=== PATIENT | female | born 1945 | race Caucasian/White ===

== ENCOUNTER 2023-10-06 16:57 | Observation (INO) | payer MEDICARE ==
[2023-10-06] MEDS ORDERED: Sodium Chloride 0.9% 10 ML Syringe FLUSH PRN (17:35)
[2023-10-06] MEDS ORDERED: methylPREDNISolone Sodium Succinate 40 MG/1 ML SDV IVPUSH ONE (17:36)
[2023-10-06] MEDS ORDERED: Albuterol/Ipratropium 3.0-0.5 MG/3 ML Neb Soln NEB ONE (17:37)
[2023-10-06] MEDS ORDERED: Sodium Chloride 0.9% 250 ML IV SCH (18:00)
[2023-10-06 18:17] LABS: A/G RATIO 0.7 (0.8-2.0); ALBUMIN 3.2 g/dL (3.4-5.0); ANION GAP 14.5 mmol/L (5.0-15.0); BILIRUBIN TOTAL 0.5 mg/dL (0.0-1.0); BUN/CREATININE RATIO 20.6 (6-25); CALCIUM 8.5 mg/dL (8.5-10.1); CREATININE 1.07 mg/dL (0.55-1.02); EST CRCL DRUG DOSING (CG) 33.22 mL/min; MAGNESIUM 1.6 mg/dL (1.8-2.4); POTASSIUM,K 3.5 mmol/L (3.5-5.1); PROTEIN TOTAL,TP 7.8 g/dL (6.4-8.2)
[2023-10-06 18:18] LABS: HEMOGLOBIN 12.2 g/dL (11.5-16.5); MEAN CORPUSCULAR VOLUME 94 fL (76-96); MEAN PLATELET VOLUME 9.4 fL (6.0-10.0); PLATELET COUNT,PLT 341 K/uL (150-500); RED BLOOD CELL COUNT 3.93 M/uL (3.80-5.80); RED CELL DISTRIBUTION WIDTH 12.6 % (11.0-16.0)
[2023-10-06 18:21] LABS: WHITE BLOOD CELL COUNT,WBC 21.2 K/uL (4.0-11.0)
[2023-10-06 18:40] LABS: INFLUENZA A NAA NEGATIVE (NEGATIVE); INFLUENZA B NAA NEGATIVE (NEGATIVE); RESPIRATORY SYNCYTIAL VIR NAA NEGATIVE (NEGATIVE)
[2023-10-06] MEDS ORDERED: Magnesium Oxide 400 MG Tab PO ONE (18:43)
[2023-10-06 18:47] LABS: CORONAVIRUS COVID-19 NAA NEGATIVE (NEGATIVE)
[2023-10-06 18:54] LABS: APPEARANCE,URINE CLEAR (CLEAR); BILIRUBIN,URINE NEGATIVE (NEGATIVE); COLOR,URINE YELLOW; GLUCOSE,URINE NEGATIVE (NEGATIVE); KETONES,URINE NEGATIVE (NEGATIVE); LEUKOCYTE ESTERASE,URINE TRACE (NEGATIVE); NITRITE,URINE NEGATIVE (NEGATIVE); OCCULT BLOOD,URINE TRACE-INTACT (NEGATIVE); PROTEIN,URINE 30 mg/dL (NEGATIVE); UROBILINOGEN,URINE 0.2 E.U./dL (0.2-1.0)
[2023-10-06] MEDS ORDERED: Azithromycin 500 MG in Sodium Chloride 0.9% 250 ML IV ONE (18:55)
[2023-10-06 18:57] LABS: PLATELET COUNT ESTIMATE ADEQUATE
[2023-10-06 19:00] LABS: RBC,URINE 0-5 /HPF; RENAL EPITHELIAL CELLS,URINE RARE /HPF; SQUAMOUS EPITHELIAL CELLS,UR FEW /HPF; WBC,URINE 0-5 /HPF
[2023-10-06] MEDS ORDERED: cefTRIAXone 1 GM in Sodium Chloride 0.9% 50 ML IV SCH (19:00)
[2023-10-06] MEDS: Sodium Chloride 0.9% 1,000 ML IV SCH (19:04)
[2023-10-06] MEDS ORDERED: cefTRIAXone 1 GM Vial ONE (19:21)
[2023-10-06] MEDS ORDERED: Albuterol/Ipratropium 3.0-0.5 MG/3 ML Neb Soln NEB PRN (19:29)
[2023-10-06] MEDS ORDERED: Ondansetron 4 MG/2 ML SDV IV PRN (20:38)
[2023-10-06] MEDS ORDERED: Acetaminophen 325 MG Tab PO PRN (20:38)
[2023-10-06] MEDS: DULoxetine 20 MG Cap PO SCH (21:33)
[2023-10-07] MEDS: Sodium Chloride 0.9% 1,000 ML IV SCH (06:21)
[2023-10-07] MEDS ORDERED: Omeprazole 20 MG Cap.CR PO SCH (07:00)
[2023-10-07] MEDS ORDERED: Formoterol/Mometasone 200-5 MCG 8.8 GM Inhaler IH SCH (08:00)
[2023-10-07] MEDS ORDERED: amLODIPine 10 MG Tab PO SCH (08:00)
[2023-10-07] MEDS ORDERED: Losartan 50 MG Tab PO SCH (08:00)
[2023-10-07] MEDS ORDERED: Tiotropium Bromide 4 GM Inhalation Spray (2.5mcg/1 dose; 10 doses) INH SCH (08:00)
[2023-10-07 08:18] LABS: HEMATOCRIT 35.3 % (37.0-47.0); HEMOGLOBIN 11.4 g/dL (11.5-16.5); LYMPHOCYTES ABSOLUTE AUTO 0.37 K/uL (1.50-4.00); LYMPHOCYTES PERCENT AUTO 3.8 % (20.0-40.0); MEAN CORPUSCULAR HGB CONC 32.3 g/dL (31.0-35.0); MEAN CORPUSCULAR VOLUME 96 fL (76-96); MEAN PLATELET VOLUME 9.3 fL (6.0-10.0); MONOCYTES ABSOLUTE AUTO 0.24 K/uL (0.20-0.80); MONOCYTES PERCENT AUTO 2.5 % (3.0-10.0); NEUTROPHILS ABSOLUTE AUTO 9.07 K/uL (2.00-7.50); NEUTROPHILS PERCENT AUTO 93.7 % (45.0-70.0); PLATELET COUNT,PLT 336 K/uL (150-500); RED BLOOD CELL COUNT 3.68 M/uL (3.80-5.80); RED CELL DISTRIBUTION WIDTH 12.8 % (11.0-16.0); WHITE BLOOD CELL COUNT,WBC 9.7 K/uL (4.0-11.0)
[2023-10-07] MEDS: DULoxetine 20 MG Cap PO SCH (08:21)
[2023-10-07 09:00] LABS: A/G RATIO 0.7 (0.8-2.0); ALBUMIN 2.8 g/dL (3.4-5.0); ANION GAP 14.5 mmol/L (5.0-15.0); BILIRUBIN TOTAL 0.3 mg/dL (0.0-1.0); BUN/CREATININE RATIO 20.5 (6-25); CALCIUM 7.7 mg/dL (8.5-10.1); CARBON DIOXIDE,CO2 22.6 mmol/L (21.0-32.0); CREATININE 0.83 mg/dL (0.55-1.02); EST CRCL DRUG DOSING (CG) 42.83 mL/min; MAGNESIUM 1.9 mg/dL (1.8-2.4); POTASSIUM,K 4.1 mmol/L (3.5-5.1)
[2023-10-07] MEDS ORDERED: Azithromycin 250 MG in Sodium Chloride 0.9% 250 ML IV SCH (20:00)
== END 2023-10-07 10:10 | disposition home or self-care (01) ==
LOC: LB.ED 16:57 → LB.MS 19:11 → UNDOADMOB 19:11 → LB.MS 19:20 → LB.ED 19:55
PROVIDERS: ADMIT Nurse Practitioner Family; ATTEND Nurse Practitioner Family
DX: R06.00 Dyspnea, unspecified (principal); R00.0 Tachycardia, unspecified; D72.829 Elevated white blood cell count, unspecified; N39.0 Urinary tract infection, site not specified; J44.9 Chronic obstructive pulmonary disease, unspecified; Z20.822 Contact with and (suspected) exposure to COVID-19; Z79.899 Other long term (current) drug therapy
CPT/HCPCS: 0241U; 36415; 71045; 80053; 81001; 83605; 83735; 85025; 87040; 87086; 93005; 94640; 96361; 96365; 96375; 99222; 99238; 99285-25; A9270-GY; G0378; J0456; J0696; J2920; J3490; J7030; J7050; J7620

== ENCOUNTER 2024-06-27 08:32 | Emergency (ER) | payer MEDICARE | END 2024-06-27 09:58 | disposition home or self-care (01) | LOC: LB.ED 08:32 | DX: S70.02XA Contusion of left hip, initial encounter (principal); S20.219A Contusion of unspecified front wall of thorax, initial encounter; S39.93XA Unspecified injury of pelvis, initial encounter; I10 Essential (primary) hypertension; E78.00 Pure hypercholesterolemia, unspecified; Z79.899 Other long term (current) drug therapy; J44.9 Chronic obstructive pulmonary disease, unspecified; K21.9 Gastro-esophageal reflux disease without esophagitis; W10.9XXA Fall (on) (from) unspecified stairs and steps, initial encounter; Y93.89 Activity, other specified | CPT/HCPCS: 73030-LT; 73502-LT; 99283 ==

== ENCOUNTER 2024-07-01 08:39 | Emergency (ER) | payer MEDICARE | END 2024-07-01 09:15 | disposition home or self-care (01) | LOC: LB.ED 08:39 | DX: S32.9XXA Fracture of unspecified parts of lumbosacral spine and pelvis, initial encounter for closed fracture (principal); I10 Essential (primary) hypertension; E78.00 Pure hypercholesterolemia, unspecified; Z79.899 Other long term (current) drug therapy; W19.XXXA Unspecified fall, initial encounter | CPT/HCPCS: 99283 ==

== ENCOUNTER 2024-07-03 08:49 | Observation (INO) | payer MEDICARE ==
[2024-07-03] MEDS: Ondansetron 4 MG/2 ML SDV IVPUSH ONE (10:27)
[2024-07-03] MEDS: HYDROmorphone 2 MG/ML Syringe IVPUSH PRN ×2 (10:32→14:16)
[2024-07-03] MEDS: Sodium Chloride 0.9% 1,000 ML IV SCH (10:40)
[2024-07-03] MEDS: HYDROmorphone 2 MG/ML Syringe ONE (10:41)
[2024-07-03 11:02] LABS: BASOPHILS ABSOLUTE AUTO 0.01 K/uL (0.02-0.10); BASOPHILS PERCENT AUTO 0.1 % (0.0-0.5); EOSINOPHILS ABSOLUTE AUTO 0.02 K/uL (0.04-0.40); EOSINOPHILS PERCENT AUTO 0.2 % (1.0-5.0); HEMATOCRIT 35.3 % (37.0-47.0); HEMOGLOBIN 12.9 g/dL (11.5-16.5); LYMPHOCYTES ABSOLUTE AUTO 0.25 K/uL (1.50-4.00); LYMPHOCYTES PERCENT AUTO 2.5 % (20.0-40.0); MEAN CORPUSCULAR HEMOGLOBIN 33.8 pg (27.0-32.0); MEAN CORPUSCULAR HGB CONC 36.5 g/dL (31.0-35.0); MEAN CORPUSCULAR VOLUME 92 fL (76-96); MEAN PLATELET VOLUME 10.3 fL (6.0-10.0); MONOCYTES ABSOLUTE AUTO 0.42 K/uL (0.20-0.80); MONOCYTES PERCENT AUTO 4.2 % (3.0-10.0); NEUTROPHILS ABSOLUTE AUTO 9.38 K/uL (2.00-7.50); PLATELET COUNT,PLT 249 K/uL (150-500); RED BLOOD CELL COUNT 3.82 M/uL (3.80-5.80); RED CELL DISTRIBUTION WIDTH 13.2 % (11.0-16.0); WHITE BLOOD CELL COUNT,WBC 10.1 K/uL (4.0-11.0)
[2024-07-03 11:22] LABS: A/G RATIO 0.5 (0.8-2.0); ALBUMIN 2.1 g/dL (3.4-5.0); ANION GAP 16.9 mmol/L (5.0-15.0); BILIRUBIN TOTAL 0.5 mg/dL (0.0-1.0); BUN/CREATININE RATIO 45.6 (6-25); CALCIUM 7.6 mg/dL (8.5-10.1); CARBON DIOXIDE,CO2 20.4 mmol/L (21.0-32.0); CREATININE 1.8 mg/dL (0.55-1.02); EST CRCL DRUG DOSING (CG) 19.44 mL/min; POTASSIUM,K 4.3 mmol/L (3.5-5.1); PROTEIN TOTAL,TP 6.4 g/dL (6.4-8.2)
[2024-07-03] MEDS: Ketorolac 30 MG/ML SDV IVPUSH ONE (11:35)
[2024-07-03] MEDS: Ondansetron 4 MG/2 ML SDV ONE (11:36)
[2024-07-03 12:57] LABS: APPEARANCE,URINE SLIGHTLY CLOUDY (CLEAR); BILIRUBIN,URINE SMALL (NEGATIVE); COLOR,URINE YELLOW; GLUCOSE,URINE NEGATIVE (NEGATIVE); LEUKOCYTE ESTERASE,URINE TRACE (NEGATIVE); NITRITE,URINE NEGATIVE (NEGATIVE); OCCULT BLOOD,URINE NEGATIVE (NEGATIVE); PH,URINE 5.5 (5.0-8.0); PROTEIN,URINE 30 mg/dL (NEGATIVE); UROBILINOGEN,URINE 0.2 E.U./dL (0.2-1.0)
[2024-07-03 12:58] LABS: KETONES,URINE NEGATIVE (NEGATIVE); RBC,URINE NOT SEEN /HPF; SQUAMOUS EPITHELIAL CELLS,UR OCCASIONAL /HPF; WBC CLUMPS,URINE RARE /HPF
[2024-07-03] MEDS ORDERED: 50% Dextrose in Water 50 ML Syringe IVPUSH PRN (14:40)
[2024-07-03] MEDS ORDERED: Glucagon,Human Recombinant 1 MG Vial IM PRN (14:40)
[2024-07-03] MEDS ORDERED: Insulin Aspart 100 Units/ML 3 ML Pen SUBCUT SCH (15:00)
[2024-07-03] MEDS: LORazepam 2 MG/ML SDV IVPUSH PRN (16:37)
[2024-07-03 17:35] LABS: ANION GAP 17.5 mmol/L (5.0-15.0); BUN/CREATININE RATIO 46.1 (6-25); CREATININE 1.67 mg/dL (0.55-1.02); EST CRCL DRUG DOSING (CG) 20.95 mL/min; POTASSIUM,K 4.5 mmol/L (3.5-5.1)
[2024-07-03] MEDS ORDERED: Levofloxacin/Dextrose 5%-Water 750 MG in Levofloxacin/Dextrose 5%-Water 150 ML IV SCH (18:30)
[2024-07-03] MEDS: Levofloxacin/Dextrose 5%-Water 750 MG in Levofloxacin/Dextrose 5%-Water 150 ML IV ONE (19:11)
[2024-07-03] MEDS: cefTRIAXone 2 GM in Sodium Chloride 0.9% 100 ML IV ONE (19:13)
[2024-07-03 19:26] LABS: INFLUENZA A NAA NEGATIVE (NEGATIVE); INFLUENZA B NAA NEGATIVE (NEGATIVE); RESPIRATORY SYNCYTIAL VIR NAA NEGATIVE (NEGATIVE)
[2024-07-03 19:30] LABS: CORONAVIRUS COVID-19 NAA NEGATIVE (NEGATIVE)
[2024-07-03] MEDS: Calcium Carbonate 600 MG Tab PO SCH (23:51)
[2024-07-03] MEDS: Simvastatin 40 MG Tab *PT OWN MED PO SCH (23:51)
[2024-07-04] MEDS ORDERED: Pantoprazole 40 MG Tab.CR *PT OWN MED PO SCH (07:00)
[2024-07-04] MEDS ORDERED: LOSARTAN 100 MG PO SCH (08:00)
[2024-07-04] MEDS ORDERED: Tiotropium Bromide 4 GM Inhalation Spray (2.5mcg/1 dose; 10 doses) INH SCH (08:00)
[2024-07-04] MEDS ORDERED: Omeprazole 20 MG Cap.CR PO SCH (08:00)
== END 2024-07-03 22:56 ==
LOC: LB.ED 08:49 → LB.MS 11:45
PROVIDERS: ADMIT Surgery; ATTEND Surgery
DX: S32.519A Fracture of superior rim of unspecified pubis, initial encounter for closed fracture (principal); E86.0 Dehydration; R10.2 Pelvic and perineal pain; N17.9 Acute kidney failure, unspecified
CPT/HCPCS: 0241U; 36415; 51702; 71046; 71250; 74176; 80048; 80053; 81001; 83605; 83690; 84484; 85025; 87040; 93005; 99236; J0696; J1170; J1956; J2060; J2405; J3490; J7030

== ENCOUNTER 2024-07-14 11:48 | Emergency (ER) | payer MEDICARE ==
[2024-07-14] MEDS: Acetaminophen/oxyCODONE 325-5 MG Tab PO ONE (13:48)
[2024-07-14 14:23] LABS: APPEARANCE,URINE CLEAR (CLEAR); BILIRUBIN,URINE NEGATIVE (NEGATIVE); COLOR,URINE YELLOW; GLUCOSE,URINE NEGATIVE (NEGATIVE); KETONES,URINE NEGATIVE (NEGATIVE); PROTEIN,URINE NEGATIVE (NEGATIVE)
[2024-07-14 14:24] LABS: LEUKOCYTE ESTERASE,URINE NEGATIVE (NEGATIVE); NITRITE,URINE NEGATIVE (NEGATIVE); OCCULT BLOOD,URINE NEGATIVE (NEGATIVE); UROBILINOGEN,URINE 0.2 E.U./dL (0.2-1.0)
[2024-07-14 15:08] LABS: A/G RATIO 0.4 (0.8-2.0); ALBUMIN 1.8 g/dL (3.4-5.0); ANION GAP 11.7 mmol/L (5.0-15.0); BILIRUBIN TOTAL 0.6 mg/dL (0.0-1.0); BUN/CREATININE RATIO 16.9 (6-25); CARBON DIOXIDE,CO2 25.6 mmol/L (21.0-32.0); CREATININE 0.83 mg/dL (0.55-1.02); EST CRCL DRUG DOSING (CG) 42.15 mL/min; POTASSIUM,K 3.3 mmol/L (3.5-5.1); PROTEIN TOTAL,TP 5.9 g/dL (6.4-8.2)
[2024-07-14 15:17] LABS: MEAN CORPUSCULAR HEMOGLOBIN 31.1 pg (27.0-32.0); MEAN CORPUSCULAR HGB CONC 33.2 g/dL (31.0-35.0); MEAN CORPUSCULAR VOLUME 94 fL (76-96); RED BLOOD CELL COUNT 2.67 M/uL (3.80-5.80); RED CELL DISTRIBUTION WIDTH 14.6 % (11.0-16.0); WHITE BLOOD CELL COUNT,WBC 16.9 K/uL (4.0-11.0)
[2024-07-14 15:18] LABS: INFLUENZA A NAA NEGATIVE (NEGATIVE); INFLUENZA B NAA NEGATIVE (NEGATIVE); RESPIRATORY SYNCYTIAL VIR NAA NEGATIVE (NEGATIVE)
[2024-07-14 15:19] LABS: CORONAVIRUS COVID-19 NAA NEGATIVE (NEGATIVE)
[2024-07-14 15:24] LABS: PLATELET COUNT,PLT 730 K/uL (150-500)
[2024-07-14 15:27] LABS: ANISOCYTOSIS RARE; HYPOCHROMASIA MANY; PLATELET COUNT ESTIMATE MARKED INC; POIKILOCYTOSIS RARE; STOMATOCYTES RARE
[2024-07-14 15:30] LABS: HEMOGLOBIN 8.3 g/dL (11.5-16.5)
[2024-07-14] MEDS ORDERED: oxyCODONE 5 MG Tab PO PRN (15:36)
[2024-07-14] MEDS ORDERED: Calcium Carbonate 600 MG Tab PO SCH (20:00)
[2024-07-14] MEDS ORDERED: DULoxetine 20 MG Cap PO SCH (20:00)
[2024-07-15] MEDS ORDERED: Pantoprazole 40 MG Tab.CR PO SCH (07:00)
[2024-07-15] MEDS ORDERED: amLODIPine 10 MG Tab PO SCH (08:00)
[2024-07-15] MEDS ORDERED: Non-Formulary Medication 1 Each (Magnesium [Magnesium] 250 MG Tablet) PO SCH (08:00)
[2024-07-15] MEDS ORDERED: FERROUS SULFATE DRIED 159 MG PO SCH ×2 (08:00)
[2024-07-15] MEDS ORDERED: Tiotropium Bromide 4 GM Inhalation Spray (2.5mcg/1 dose; 10 doses) INH SCH (08:00)
[2024-07-15] MEDS ORDERED: Diltiazem 120 MG Cap.CD PO SCH (08:00)
[2024-07-15] MEDS ORDERED: Magnesium Oxide 400 MG Tab PO SCH (08:00)
[2024-07-15] MEDS ORDERED: Ferrous Gluconate 324 MG Tab PO SCH (08:00)
[2024-07-15 08:36] LABS: BASOPHILS ABSOLUTE AUTO 0.02 K/uL (0.02-0.10); BASOPHILS PERCENT AUTO 0.2 % (0.0-0.5); EOSINOPHILS ABSOLUTE AUTO 0.09 K/uL (0.04-0.40); EOSINOPHILS PERCENT AUTO 0.8 % (1.0-5.0); HEMATOCRIT 26.7 % (37.0-47.0); HEMOGLOBIN 8.8 g/dL (11.5-16.5); LYMPHOCYTES ABSOLUTE AUTO 0.68 K/uL (1.50-4.00); LYMPHOCYTES PERCENT AUTO 5.8 % (20.0-40.0); MEAN CORPUSCULAR HEMOGLOBIN 31.1 pg (27.0-32.0); MEAN CORPUSCULAR VOLUME 94 fL (76-96); MEAN PLATELET VOLUME 9.7 fL (6.0-10.0); MONOCYTES ABSOLUTE AUTO 0.66 K/uL (0.20-0.80); MONOCYTES PERCENT AUTO 5.7 % (3.0-10.0); NEUTROPHILS ABSOLUTE AUTO 10.18 K/uL (2.00-7.50); NEUTROPHILS PERCENT AUTO 87.5 % (45.0-70.0); RED BLOOD CELL COUNT 2.83 M/uL (3.80-5.80); RED CELL DISTRIBUTION WIDTH 14.8 % (11.0-16.0); WHITE BLOOD CELL COUNT,WBC 11.6 K/uL (4.0-11.0)
[2024-07-15 08:38] LABS: PLATELET COUNT,PLT 751 K/uL (150-500)
[2024-07-15 08:48] LABS: ANION GAP 12.7 mmol/L (5.0-15.0); CARBON DIOXIDE,CO2 25.6 mmol/L (21.0-32.0); CREATININE 0.92 mg/dL (0.55-1.02); EST CRCL DRUG DOSING (CG) 38.03 mL/min; POTASSIUM,K 3.3 mmol/L (3.5-5.1)
== END 2024-07-14 15:00 | disposition swing bed (61) ==
LOC: LB.ED 11:48
DX: J43.9 Emphysema, unspecified (principal); M71.022 Abscess of bursa, left elbow; S32.810S Multiple fractures of pelvis with stable disruption of pelvic ring, sequela; S22.42XS Multiple fractures of ribs, left side, sequela; I10 Essential (primary) hypertension; K21.9 Gastro-esophageal reflux disease without esophagitis; J44.9 Chronic obstructive pulmonary disease, unspecified; Z87.891 Personal history of nicotine dependence; Z79.899 Other long term (current) drug therapy; W01.0XXS Fall on same level from slipping, tripping and stumbling without subsequent striking against object, sequela
CPT/HCPCS: 0241U; 36415; 71045; 80053; 81003; 85025; 87040; 99285; A9270

== ENCOUNTER 2024-07-14 15:20 | Inpatient (IN) | payer MEDICARE ==
[2024-07-14] MEDS: Acetaminophen 500 MG Tab PO SCH (16:32)
[2024-07-14] MEDS: Tuberculin, PPD 5 Units/0.1 ML 1 ML MDV IDERM ONE (19:10)
[2024-07-14] MEDS: Calcium Carbonate 600 MG Tab PO SCH (19:17)
[2024-07-14] MEDS: DULoxetine 20 MG Cap PO SCH (19:17)
[2024-07-15] MEDS: Magnesium Oxide 400 MG Tab PO SCH (07:51)
[2024-07-15] MEDS: Ferrous Gluconate 324 MG Tab PO SCH (07:52)
[2024-07-15] MEDS: Pantoprazole 40 MG Tab.CR PO SCH (07:52)
[2024-07-15] MEDS: Diltiazem 120 MG Cap.CD PO SCH (07:52)
[2024-07-15] MEDS: Tiotropium Bromide 4 GM Inhalation Spray (2.5mcg/1 dose; 10 doses) INH SCH (07:53)
[2024-07-15] MEDS: amLODIPine 10 MG Tab PO SCH (07:53)
[2024-07-15] MEDS ORDERED: FERROUS SULFATE DRIED 159 MG PO SCH (08:00)
[2024-07-15] MEDS: oxyCODONE 5 MG Tab PO PRN (09:40)
[2024-07-15] MEDS ORDERED: Zinc Oxide 20% Oint 56.7 GM Tube TOP PRN (09:52)
[2024-07-15 10:30] LABS: APPEARANCE,URINE CLOUDY (CLEAR); BILIRUBIN,URINE NEGATIVE (NEGATIVE); COLOR,URINE YELLOW; GLUCOSE,URINE NEGATIVE (NEGATIVE); KETONES,URINE NEGATIVE (NEGATIVE); LEUKOCYTE ESTERASE,URINE TRACE (NEGATIVE); NITRITE,URINE NEGATIVE (NEGATIVE); OCCULT BLOOD,URINE TRACE-INTACT (NEGATIVE); PH,URINE 7.5 (5.0-8.0); PROTEIN,URINE NEGATIVE (NEGATIVE); UROBILINOGEN,URINE 0.2 E.U./dL (0.2-1.0)
[2024-07-15 10:31] LABS: RBC,URINE 0-5 /HPF; SQUAMOUS EPITHELIAL CELLS,UR OCCASIONAL /HPF; WBC,URINE 0-5 /HPF
[2024-07-15] MEDS: FLU (Fluad Triv) TS24-25 (65UP)/MF59C/PF 45 MCG/0.5 ML Syringe IM ONE (13:59)
[2024-07-16] MEDS: fentaNYL 12 MCG/HR Transdermal Patch TRDERM SCH (11:57)
[2024-07-16] MEDS: ALPRAZolam 0.25 MG Tab PO PRN (11:59)
[2024-07-16] MEDS: fentaNYL 100 MCG/2 ML SDV IVPUSH ONE (15:33)
[2024-07-16] MEDS: oxyCODONE 5 MG Tab PO PRN (20:17)
[2024-07-17 06:25] LABS: IRON BINDING CAPACITY TOTAL 141 ug/dL (240-450); IRON,SERUM OR PLASMA 16 ug/dL (28-170); TRANSFERRIN SATURATION 11 %sat (20-50)
[2024-07-17 06:36] LABS: FERRITIN 1482 ng/mL (11-328)
[2024-07-17] MEDS: ALPRAZolam 0.25 MG Tab PO PRN (08:20)
[2024-07-17] MEDS: Albuterol/Ipratropium 3.0-0.5 MG/3 ML Neb Soln NEB PRN (16:23)
[2024-07-17] MEDS: SYMBICORT INH SCH (23:06)
[2024-07-18] MEDS: SYMBICORT INH SCH (08:21)
[2024-07-19] MEDS: Cyclobenzaprine 10 MG Tab PO PRN (10:53)
[2024-07-19] MEDS: Nystatin Topical Powder 15 GM Bottle TOP SCH (12:43)
[2024-07-19 14:03] LABS: BASOPHILS ABSOLUTE AUTO 0.02 K/uL (0.02-0.10); BASOPHILS PERCENT AUTO 0.1 % (0.0-0.5); EOSINOPHILS ABSOLUTE AUTO 0.14 K/uL (0.04-0.40); HEMATOCRIT 22.9 % (37.0-47.0); HEMOGLOBIN 7.4 g/dL (11.5-16.5); LYMPHOCYTES ABSOLUTE AUTO 0.66 K/uL (1.50-4.00); LYMPHOCYTES PERCENT AUTO 4.9 % (20.0-40.0); MEAN CORPUSCULAR HGB CONC 32.3 g/dL (31.0-35.0); MEAN CORPUSCULAR VOLUME 96 fL (76-96); MEAN PLATELET VOLUME 9.3 fL (6.0-10.0); MONOCYTES ABSOLUTE AUTO 1.07 K/uL (0.20-0.80); MONOCYTES PERCENT AUTO 7.9 % (3.0-10.0); NEUTROPHILS ABSOLUTE AUTO 11.65 K/uL (2.00-7.50); NEUTROPHILS PERCENT AUTO 86.1 % (45.0-70.0); PLATELET COUNT,PLT 482 K/uL (150-500); RED BLOOD CELL COUNT 2.39 M/uL (3.80-5.80); RED CELL DISTRIBUTION WIDTH 14.8 % (11.0-16.0); WHITE BLOOD CELL COUNT,WBC 13.5 K/uL (4.0-11.0)
[2024-07-19 14:40] LABS: A/G RATIO 0.4 (0.8-2.0); ALBUMIN 1.7 g/dL (3.4-5.0); ANION GAP 12.2 mmol/L (5.0-15.0); BILIRUBIN TOTAL 0.3 mg/dL (0.0-1.0); BUN/CREATININE RATIO 20.5 (6-25); C-REACTIVE PROTEIN 103.8 mg/L (<5.0); CALCIUM 8.4 mg/dL (8.5-10.1); CARBON DIOXIDE,CO2 23.9 mmol/L (21.0-32.0); CREATININE 0.88 mg/dL (0.55-1.02); EST CRCL DRUG DOSING (CG) 39.76 mL/min; POTASSIUM,K 4.1 mmol/L (3.5-5.1); PROTEIN TOTAL,TP 6.1 g/dL (6.4-8.2)
[2024-07-19 15:08] LABS: SEDIMENTATION RATE MANUAL 108 mm/hr (0-30)
[2024-07-22 10:23] LABS: BASOPHILS ABSOLUTE AUTO 0.02 K/uL (0.02-0.10); BASOPHILS PERCENT AUTO 0.2 % (0.0-0.5); EOSINOPHILS ABSOLUTE AUTO 0.05 K/uL (0.04-0.40); EOSINOPHILS PERCENT AUTO 0.5 % (1.0-5.0); HEMATOCRIT 23.3 % (37.0-47.0); HEMOGLOBIN 7.4 g/dL (11.5-16.5); LYMPHOCYTES ABSOLUTE AUTO 0.56 K/uL (1.50-4.00); LYMPHOCYTES PERCENT AUTO 5.3 % (20.0-40.0); MEAN CORPUSCULAR HEMOGLOBIN 30.6 pg (27.0-32.0); MEAN CORPUSCULAR HGB CONC 31.8 g/dL (31.0-35.0); MEAN CORPUSCULAR VOLUME 96 fL (76-96); MEAN PLATELET VOLUME 9.1 fL (6.0-10.0); MONOCYTES ABSOLUTE AUTO 0.71 K/uL (0.20-0.80); MONOCYTES PERCENT AUTO 6.7 % (3.0-10.0); NEUTROPHILS ABSOLUTE AUTO 9.32 K/uL (2.00-7.50); NEUTROPHILS PERCENT AUTO 87.3 % (45.0-70.0); PLATELET COUNT,PLT 478 K/uL (150-500); RED BLOOD CELL COUNT 2.42 M/uL (3.80-5.80); RED CELL DISTRIBUTION WIDTH 14.7 % (11.0-16.0); WHITE BLOOD CELL COUNT,WBC 10.7 K/uL (4.0-11.0)
[2024-07-25 07:40] LABS: BASOPHILS ABSOLUTE AUTO 0.03 K/uL (0.02-0.10); BASOPHILS PERCENT AUTO 0.2 % (0.0-0.5); EOSINOPHILS ABSOLUTE AUTO 0.11 K/uL (0.04-0.40); EOSINOPHILS PERCENT AUTO 0.9 % (1.0-5.0); HEMATOCRIT 25.8 % (37.0-47.0); HEMOGLOBIN 8.4 g/dL (11.5-16.5); LYMPHOCYTES ABSOLUTE AUTO 0.57 K/uL (1.50-4.00); LYMPHOCYTES PERCENT AUTO 4.6 % (20.0-40.0); MEAN CORPUSCULAR HEMOGLOBIN 30.7 pg (27.0-32.0); MEAN CORPUSCULAR HGB CONC 32.6 g/dL (31.0-35.0); MEAN CORPUSCULAR VOLUME 94 fL (76-96); MEAN PLATELET VOLUME 8.8 fL (6.0-10.0); MONOCYTES ABSOLUTE AUTO 0.73 K/uL (0.20-0.80); MONOCYTES PERCENT AUTO 5.9 % (3.0-10.0); NEUTROPHILS ABSOLUTE AUTO 11.03 K/uL (2.00-7.50); NEUTROPHILS PERCENT AUTO 88.4 % (45.0-70.0); PLATELET COUNT,PLT 590 K/uL (150-500); RED BLOOD CELL COUNT 2.74 M/uL (3.80-5.80); RED CELL DISTRIBUTION WIDTH 14.6 % (11.0-16.0); WHITE BLOOD CELL COUNT,WBC 12.5 K/uL (4.0-11.0)
[2024-07-25 08:27] LABS: A/G RATIO 0.4 (0.8-2.0); ALANINE AMINOTRANSFERASE,ALT 69 U/L (12-78); ALBUMIN 1.9 g/dL (3.4-5.0); ALKALINE PHOSPHATASE 157 U/L (46-116); ANION GAP 14.4 mmol/L (5.0-15.0); ASPARTATE AMNIOTRANSFERASE,AST 281 U/L (15-37); BILIRUBIN TOTAL 0.5 mg/dL (0.0-1.0); BLOOD UREA NITROGEN,BUN 12 mg/dL (8-26); BUN/CREATININE RATIO 15.6 (6-25); C-REACTIVE PROTEIN 80.9 mg/L (<5.0); CALCIUM 8.6 mg/dL (8.5-10.1); CARBON DIOXIDE,CO2 24.5 mmol/L (21.0-32.0); CHLORIDE,CL 100 mmol/L (98-107); CREATININE 0.77 mg/dL (0.55-1.02); EST CRCL DRUG DOSING (CG) 45.44 mL/min; ESTIMATED GFR 79 mL/min (>60); GLUCOSE RANDOM 92 mg/dL (74-100); POTASSIUM,K 3.9 mmol/L (3.5-5.1); PROTEIN TOTAL,TP 6.7 g/dL (6.4-8.2); SODIUM,NA 135 mmol/L (136-145)
[2024-07-25 08:33] LABS: PTT,PARTIAL THROMBOPLSTIN TIME 25.4 SECONDS (24.4-33.2)
[2024-07-25 08:37] LABS: CREATINE KINASE,CK > 1000 U/L (21-232)
[2024-07-25 08:41] LABS: PROTHROMBIN TIME 10.6 sec (9.0-11.5); SEDIMENTATION RATE MANUAL 120 mm/hr (0-30)
[2024-07-25] MEDS: Iopamidol 612 MG/ML 100 ML Bottle IV SCH (10:25)
[2024-07-25] MEDS ORDERED: Iopamidol 612 MG/ML 100 ML Bottle IV SCH (10:45)
[2024-07-25] MEDS: Sodium Chloride 0.9% 50 ML SDV FLUSH ONE (10:58)
[2024-07-25] MEDS: Enoxaparin 40 MG/0.4 ML Syringe SUBCUT SCH (13:12)
[2024-07-25 14:24] LABS: INFLUENZA A NAA NEGATIVE (NEGATIVE); INFLUENZA B NAA NEGATIVE (NEGATIVE); RESPIRATORY SYNCYTIAL VIR NAA NEGATIVE (NEGATIVE)
[2024-07-25 14:27] LABS: CORONAVIRUS COVID-19 NAA NEGATIVE (NEGATIVE)
[2024-07-25] MEDS: Naproxen 250 MG Tab PO SCH (19:28)
[2024-07-26] MEDS: Cefepime 2 GM in Sodium Chloride 0.9% 50 ML IV ONE (11:22)
[2024-07-26] MEDS: Nystatin Susp 100,000 Unit/ML 5 ML UD Cup PO SCH (12:22)
[2024-07-26] MEDS: Cefepime 2 GM in Sodium Chloride 0.9% 50 ML IV SCH (19:50)
[2024-07-28 07:56] LABS: BASOPHILS ABSOLUTE AUTO 0.03 K/uL (0.02-0.10); BASOPHILS PERCENT AUTO 0.3 % (0.0-0.5); EOSINOPHILS ABSOLUTE AUTO 0.26 K/uL (0.04-0.40); EOSINOPHILS PERCENT AUTO 2.7 % (1.0-5.0); HEMATOCRIT 25.1 % (37.0-47.0); HEMOGLOBIN 7.9 g/dL (11.5-16.5); LYMPHOCYTES ABSOLUTE AUTO 0.66 K/uL (1.50-4.00); LYMPHOCYTES PERCENT AUTO 6.9 % (20.0-40.0); MEAN CORPUSCULAR HEMOGLOBIN 30.6 pg (27.0-32.0); MEAN CORPUSCULAR HGB CONC 31.5 g/dL (31.0-35.0); MEAN CORPUSCULAR VOLUME 97 fL (76-96); MONOCYTES ABSOLUTE AUTO 0.78 K/uL (0.20-0.80); MONOCYTES PERCENT AUTO 8.2 % (3.0-10.0); NEUTROPHILS ABSOLUTE AUTO 7.84 K/uL (2.00-7.50); NEUTROPHILS PERCENT AUTO 81.9 % (45.0-70.0); RED BLOOD CELL COUNT 2.58 M/uL (3.80-5.80); RED CELL DISTRIBUTION WIDTH 14.9 % (11.0-16.0); WHITE BLOOD CELL COUNT,WBC 9.6 K/uL (4.0-11.0)
[2024-07-28 08:23] LABS: PLATELET COUNT,PLT 703 K/uL (150-500)
[2024-07-28 08:28] LABS: A/G RATIO 0.4 (0.8-2.0); ANION GAP 11.2 mmol/L (5.0-15.0); BILIRUBIN TOTAL 0.3 mg/dL (0.0-1.0); BUN/CREATININE RATIO 16.9 (6-25); CALCIUM 8.8 mg/dL (8.5-10.1); CARBON DIOXIDE,CO2 24.7 mmol/L (21.0-32.0); CREATININE 0.89 mg/dL (0.55-1.02); EST CRCL DRUG DOSING (CG) 39.31 mL/min; POTASSIUM,K 3.9 mmol/L (3.5-5.1)
[2024-07-28] MEDS: Tuberculin, PPD 5 Units/0.1 ML 1 ML MDV IDERM ONE (14:00)
[2024-07-29] MEDS: Albuterol/Ipratropium 3.0-0.5 MG/3 ML Neb Soln NEB PRN (12:31)
[2024-07-29] MEDS: Albuterol/Ipratropium 3.0-0.5 MG/3 ML Neb Soln NEB SCH (17:14)
[2024-08-01 07:50] LABS: BASOPHILS ABSOLUTE AUTO 0.02 K/uL (0.02-0.10); BASOPHILS PERCENT AUTO 0.2 % (0.0-0.5); EOSINOPHILS ABSOLUTE AUTO 0.48 K/uL (0.04-0.40); EOSINOPHILS PERCENT AUTO 5.2 % (1.0-5.0); HEMATOCRIT 24.1 % (37.0-47.0); LYMPHOCYTES ABSOLUTE AUTO 0.74 K/uL (1.50-4.00); LYMPHOCYTES PERCENT AUTO 8.1 % (20.0-40.0); MEAN CORPUSCULAR HEMOGLOBIN 30.4 pg (27.0-32.0); MEAN CORPUSCULAR HGB CONC 31.1 g/dL (31.0-35.0); MEAN CORPUSCULAR VOLUME 98 fL (76-96); MEAN PLATELET VOLUME 9.1 fL (6.0-10.0); MONOCYTES ABSOLUTE AUTO 1.16 K/uL (0.20-0.80); MONOCYTES PERCENT AUTO 12.6 % (3.0-10.0); NEUTROPHILS ABSOLUTE AUTO 6.77 K/uL (2.00-7.50); NEUTROPHILS PERCENT AUTO 73.9 % (45.0-70.0); RED BLOOD CELL COUNT 2.47 M/uL (3.80-5.80); RED CELL DISTRIBUTION WIDTH 15.1 % (11.0-16.0); WHITE BLOOD CELL COUNT,WBC 9.2 K/uL (4.0-11.0)
[2024-08-01 08:08] LABS: HEMOGLOBIN 7.5 g/dL (11.5-16.5)
[2024-08-01 08:09] LABS: PLATELET COUNT,PLT 699 K/uL (150-500)
[2024-08-01 08:20] LABS: A/G RATIO 0.4 (0.8-2.0); ALBUMIN 1.9 g/dL (3.4-5.0); ANION GAP 12.3 mmol/L (5.0-15.0); BILIRUBIN TOTAL 0.3 mg/dL (0.0-1.0); BUN/CREATININE RATIO 17.7 (6-25); C-REACTIVE PROTEIN 63.8 mg/L (<5.0); CALCIUM 8.7 mg/dL (8.5-10.1); CARBON DIOXIDE,CO2 24.8 mmol/L (21.0-32.0); CREATININE 0.79 mg/dL (0.55-1.02); EST CRCL DRUG DOSING (CG) 44.29 mL/min; POTASSIUM,K 4.1 mmol/L (3.5-5.1); PROTEIN TOTAL,TP 7.1 g/dL (6.4-8.2)
[2024-08-01 08:48] LABS: SEDIMENTATION RATE MANUAL 136 mm/hr (0-30)
[2024-08-01] MEDS: Sodium Chloride 0.9% 50 ML SDV FLUSH ONE (10:15)
[2024-08-01] MEDS ORDERED: Iopamidol 612 MG/ML 100 ML Bottle IV SCH (11:00)
[2024-08-01] MEDS: Albuterol/Ipratropium 3.0-0.5 MG/3 ML Neb Soln NEB SCH ×2 (12:26→19:51)
[2024-08-01] MEDS: Furosemide 20 MG/2 ML VIAL IVPUSH ONE (14:27)
[2024-08-01] MEDS: Pantoprazole 80 MG in Sodium Chloride 0.9% 100 ML IV ONE (19:07)
[2024-08-01] MEDS: Ferrous Gluconate 324 MG Tab PO SCH (19:12)
[2024-08-02] MEDS: Folic Acid 1 MG Tab PO SCH (07:49)
[2024-08-02] MEDS: Furosemide 20 MG/2 ML VIAL IVPUSH SCH (07:50)
[2024-08-02 08:59] LABS: ALBUMIN 1.8 g/dL (3.4-5.0); ANION GAP 14.7 mmol/L (5.0-15.0); BILIRUBIN TOTAL 0.3 mg/dL (0.0-1.0); BUN/CREATININE RATIO 18.7 (6-25); CALCIUM 8.4 mg/dL (8.5-10.1); CREATININE 0.75 mg/dL (0.55-1.02); EST CRCL DRUG DOSING (CG) 46.65 mL/min; POTASSIUM,K 3.7 mmol/L (3.5-5.1)
[2024-08-02 09:13] LABS: A/G RATIO 0.4 (0.8-2.0)
[2024-08-02 09:15] LABS: BASOPHILS ABSOLUTE AUTO 0.02 K/uL (0.02-0.10); BASOPHILS PERCENT AUTO 0.2 % (0.0-0.5); EOSINOPHILS ABSOLUTE AUTO 0.27 K/uL (0.04-0.40); EOSINOPHILS PERCENT AUTO 2.9 % (1.0-5.0); HEMATOCRIT 23.4 % (37.0-47.0); HEMOGLOBIN 7.3 g/dL (11.5-16.5); LYMPHOCYTES ABSOLUTE AUTO 0.68 K/uL (1.50-4.00); LYMPHOCYTES PERCENT AUTO 7.2 % (20.0-40.0); MEAN CORPUSCULAR HEMOGLOBIN 30.3 pg (27.0-32.0); MEAN CORPUSCULAR HGB CONC 31.2 g/dL (31.0-35.0); MEAN CORPUSCULAR VOLUME 97 fL (76-96); MEAN PLATELET VOLUME 9.3 fL (6.0-10.0); MONOCYTES ABSOLUTE AUTO 0.95 K/uL (0.20-0.80); MONOCYTES PERCENT AUTO 10.1 % (3.0-10.0); NEUTROPHILS ABSOLUTE AUTO 7.46 K/uL (2.00-7.50); NEUTROPHILS PERCENT AUTO 79.6 % (45.0-70.0); RED BLOOD CELL COUNT 2.41 M/uL (3.80-5.80); WHITE BLOOD CELL COUNT,WBC 9.4 K/uL (4.0-11.0)
[2024-08-02 09:17] LABS: PLATELET COUNT,PLT 689 K/uL (150-500)
[2024-08-02 09:56] LABS: PROTHROMBIN TIME 10.8 sec (9.0-11.5)
[2024-08-02] MEDS: Furosemide 20 MG/2 ML VIAL IVPUSH ONE (10:15)
[2024-08-02] MEDS: Sodium Chloride 0.9% 50 ML SDV FLUSH ONE (12:06)
[2024-08-02] MEDS: Iopamidol 612 MG/ML 100 ML Bottle IV SCH (12:07)
[2024-08-02] MEDS: ALPRAZolam 0.25 MG Tab PO PRN (16:45)
== END 2024-08-02 16:54 | DRG 559 ==
LOC: LB.MS 15:20
PROVIDERS: ADMIT Family Medicine; ATTEND Family Medicine
DX: S32.9XXD Fracture of unspecified parts of lumbosacral spine and pelvis, subsequent encounter for fracture with routine healing (principal); J18.9 Pneumonia, unspecified organism; J90 Pleural effusion, not elsewhere classified; S22.42XD Multiple fractures of ribs, left side, subsequent encounter for fracture with routine healing; S32.810D Multiple fractures of pelvis with stable disruption of pelvic ring, subsequent encounter for fracture with routine healing; M71.122 Other infective bursitis, left elbow; I10 Essential (primary) hypertension; E78.00 Pure hypercholesterolemia, unspecified; J44.9 Chronic obstructive pulmonary disease, unspecified; K21.9 Gastro-esophageal reflux disease without esophagitis; M81.0 Age-related osteoporosis without current pathological fracture; D75.839 Thrombocytosis, unspecified; I48.91 Unspecified atrial fibrillation; F41.9 Anxiety disorder, unspecified; D50.8 Other iron deficiency anemias; Z98.49 Cataract extraction status, unspecified eye; Z98.890 Other specified postprocedural states; Z79.899 Other long term (current) drug therapy; Z87.891 Personal history of nicotine dependence; X58.XXXD Exposure to other specified factors, subsequent encounter
CPT/HCPCS: 0241U; 36415; 70491; 71045; 71260; 80053; 80202; 80307; 81001; 82550; 82607; 82728; 82746; 83540; 83550; 83735; 83880; 84484; 85025; 85379; 85610; 85651; 85730; 86140; 86580; 86850; 86900; 86901; 87086; 87651-QW; 93005; 94640; 97110-GP; 97116-GP; 97162-GP; 97165-GO; 97530-GO; 97530-GP; 97535-GO; 99211; A9270-GY; J0692; J0878; J1650; J1940; J2470; J3010; J3370; J3490; J7050; J7620; Q9967

== ENCOUNTER 2024-08-11 13:47 | Inpatient (IN) | payer MEDICARE ==
[2024-08-11] MEDS ORDERED: ALPRAZolam 0.25 MG Tab PO PRN (14:18)
[2024-08-11] MEDS ORDERED: Albuterol/Ipratropium 3.0-0.5 MG/3 ML Neb Soln NEB PRN (14:28)
[2024-08-11] MEDS: Nystatin Susp 100,000 Unit/ML 5 ML UD Cup PO SCH (15:23)
[2024-08-11] MEDS: oxyCODONE 5 MG Tab PO PRN (15:23)
[2024-08-11] MEDS: Tuberculin, PPD 5 Units/0.1 ML 1 ML MDV IDERM ONE (15:23)
[2024-08-11] MEDS ORDERED: Zinc Oxide 20% Oint 56.7 GM Tube TOP PRN (16:14)
[2024-08-11] MEDS ORDERED: Tuberculin, PPD 5 Units/0.1 ML 1 ML MDV IDERM ONE (17:00)
[2024-08-11] MEDS: Pantoprazole 40 MG Tab.CR PO SCH (19:23)
[2024-08-11] MEDS: DULoxetine 20 MG Cap PO SCH (19:23)
[2024-08-11] MEDS: Cyclobenzaprine 10 MG Tab PO PRN (21:34)
[2024-08-12 07:50] LABS: BASOPHILS ABSOLUTE AUTO 0.03 K/uL (0.02-0.10); BASOPHILS PERCENT AUTO 0.4 % (0.0-0.5); EOSINOPHILS ABSOLUTE AUTO 0.29 K/uL (0.04-0.40); EOSINOPHILS PERCENT AUTO 3.5 % (1.0-5.0); HEMATOCRIT 28.9 % (37.0-47.0); LYMPHOCYTES ABSOLUTE AUTO 1.08 K/uL (1.50-4.00); MEAN CORPUSCULAR HEMOGLOBIN 28.8 pg (27.0-32.0); MEAN CORPUSCULAR HGB CONC 31.1 g/dL (31.0-35.0); MEAN CORPUSCULAR VOLUME 93 fL (76-96); MONOCYTES ABSOLUTE AUTO 1.13 K/uL (0.20-0.80); MONOCYTES PERCENT AUTO 13.6 % (3.0-10.0); NEUTROPHILS ABSOLUTE AUTO 5.79 K/uL (2.00-7.50); NEUTROPHILS PERCENT AUTO 69.5 % (45.0-70.0); PLATELET COUNT,PLT 487 K/uL (150-500); RED BLOOD CELL COUNT 3.12 M/uL (3.80-5.80); RED CELL DISTRIBUTION WIDTH 15.1 % (11.0-16.0); WHITE BLOOD CELL COUNT,WBC 8.3 K/uL (4.0-11.0)
[2024-08-12] MEDS: Folic Acid 1 MG Tab PO SCH (07:50)
[2024-08-12] MEDS: Levothyroxine 50 MCG Tab PO SCH (07:50)
[2024-08-12] MEDS: Magnesium Oxide 400 MG Tab PO SCH (07:50)
[2024-08-12] MEDS: Ferrous Sulfate 325 MG Tab PO SCH (07:51)
[2024-08-12] MEDS: Calcium Carbonate 600 MG Tab PO SCH (07:51)
[2024-08-12] MEDS: Losartan 25 MG Tab PO SCH (07:52)
[2024-08-12] MEDS: Furosemide 20 MG Tab PO SCH (07:52)
[2024-08-12] MEDS: Diltiazem 120 MG Cap.CD PO SCH (07:52)
[2024-08-12] MEDS: Tiotropium Bromide 4 GM Inhalation Spray (2.5mcg/1 dose; 10 doses) INH SCH (07:54)
[2024-08-12] MEDS ORDERED: Furosemide 20 MG/2 ML VIAL IVPUSH SCH (08:00)
[2024-08-12] MEDS ORDERED: Acetaminophen 325 MG Tab PO SCH (08:00)
[2024-08-12] MEDS ORDERED: Tiotropium Inhaler 18 MCG Inhalation Powder Cap Kit of 5 INH SCH (08:00)
[2024-08-12] MEDS: Acetaminophen 325 MG Tab PO SCH (08:38)
[2024-08-12 08:40] LABS: ANION GAP 9.1 mmol/L (5.0-15.0); CARBON DIOXIDE,CO2 26.5 mmol/L (21.0-32.0); CREATININE 0.79 mg/dL (0.55-1.02); EST CRCL DRUG DOSING (CG) 39.16 mL/min; MAGNESIUM 1.5 mg/dL (1.8-2.4); POTASSIUM,K 3.6 mmol/L (3.5-5.1); VANCOMYCIN TROUGH 9.5 ug/mL (10.0-15.0)
[2024-08-12] MEDS: Ondansetron 4 MG Tab.DIS PO PRN (13:04)
[2024-08-12] MEDS: Metoclopramide 10 MG Tab PO PRN (17:10)
[2024-08-13] MEDS: BUDESONIDE FORMOTEROL INH SCH (08:49)
[2024-08-13] MEDS: Docusate Sodium 100 MG Cap PO SCH (08:49)
[2024-08-14] MEDS: Lidocaine 5% 700 MG Patch TRDERM SCH (08:46)
[2024-08-17 08:02] LABS: BASOPHILS ABSOLUTE AUTO 0.04 K/uL (0.02-0.10); BASOPHILS PERCENT AUTO 0.4 % (0.0-0.5); EOSINOPHILS ABSOLUTE AUTO 0.19 K/uL (0.04-0.40); EOSINOPHILS PERCENT AUTO 1.8 % (1.0-5.0); HEMATOCRIT 27.2 % (37.0-47.0); HEMOGLOBIN 8.6 g/dL (11.5-16.5); LYMPHOCYTES ABSOLUTE AUTO 0.93 K/uL (1.50-4.00); LYMPHOCYTES PERCENT AUTO 8.7 % (20.0-40.0); MEAN CORPUSCULAR HGB CONC 31.6 g/dL (31.0-35.0); MEAN CORPUSCULAR VOLUME 92 fL (76-96); MEAN PLATELET VOLUME 9.3 fL (6.0-10.0); MONOCYTES ABSOLUTE AUTO 0.91 K/uL (0.20-0.80); MONOCYTES PERCENT AUTO 8.5 % (3.0-10.0); NEUTROPHILS ABSOLUTE AUTO 8.67 K/uL (2.00-7.50); NEUTROPHILS PERCENT AUTO 80.6 % (45.0-70.0); RED BLOOD CELL COUNT 2.97 M/uL (3.80-5.80); RED CELL DISTRIBUTION WIDTH 15.7 % (11.0-16.0); WHITE BLOOD CELL COUNT,WBC 10.7 K/uL (4.0-11.0)
[2024-08-17 08:16] LABS: PLATELET COUNT,PLT 712 K/uL (150-500)
[2024-08-17 08:54] LABS: A/G RATIO 0.4 (0.8-2.0); ALBUMIN 2.1 g/dL (3.4-5.0); BILIRUBIN TOTAL 0.3 mg/dL (0.0-1.0); CALCIUM 8.5 mg/dL (8.5-10.1); CARBON DIOXIDE,CO2 25.5 mmol/L (21.0-32.0); CREATININE 0.77 mg/dL (0.55-1.02); EST CRCL DRUG DOSING (CG) 39.45 mL/min; POTASSIUM,K 3.5 mmol/L (3.5-5.1); PROTEIN TOTAL,TP 7.1 g/dL (6.4-8.2); VANCOMYCIN TROUGH 13.4 ug/mL (10.0-15.0)
[2024-08-17 08:59] LABS: SEDIMENTATION RATE MANUAL 95 mm/hr (0-30)
[2024-08-17] MEDS: Aspirin 81 MG Tab.EC PO SCH (10:41)
[2024-08-17] MEDS: oxyCODONE 5 MG Tab PO PRN (21:06)
[2024-08-25] MEDS ORDERED: Tuberculin, PPD 5 Units/0.1 ML 1 ML MDV IDERM ONE (17:00)
== END 2024-08-20 18:02 | disposition home or self-care (01) | DRG 948 ==
LOC: UNDOADMIN 14:50 → LB.MS 14:50
PROVIDERS: ADMIT Family Medicine; ATTEND Family Medicine
DX: R53.81 Other malaise (principal); I11.0 Hypertensive heart disease with heart failure; F41.9 Anxiety disorder, unspecified; K21.00 Gastro-esophageal reflux disease with esophagitis, without bleeding; J44.9 Chronic obstructive pulmonary disease, unspecified; E78.00 Pure hypercholesterolemia, unspecified; M19.90 Unspecified osteoarthritis, unspecified site; M81.0 Age-related osteoporosis without current pathological fracture; I50.9 Heart failure, unspecified; R91.8 Other nonspecific abnormal finding of lung field; M70.22 Olecranon bursitis, left elbow; K44.9 Diaphragmatic hernia without obstruction or gangrene; D52.9 Folate deficiency anemia, unspecified; S32.9XXD Fracture of unspecified parts of lumbosacral spine and pelvis, subsequent encounter for fracture with routine healing; S22.32XD Fracture of one rib, left side, subsequent encounter for fracture with routine healing; S42.002D Fracture of unspecified part of left clavicle, subsequent encounter for fracture with routine healing; Z87.81 Personal history of (healed) traumatic fracture; Z79.899 Other long term (current) drug therapy; Z98.49 Cataract extraction status, unspecified eye; Z98.890 Other specified postprocedural states; Z87.891 Personal history of nicotine dependence; X58.XXXD Exposure to other specified factors, subsequent encounter
CPT/HCPCS: 36415; 71046; 80048; 80053; 80202; 83735; 85025; 85651; 86140; 86580; 92526-GN; 92610-GN; 97110-GP; 97116-GP; 97161-GP; 97165-GO; 97530-GO; 97530-GP; 97535-GO; 99305; 99307; 99315; A9270-GY; J3370; J7050; Q0162; U0002

== ENCOUNTER 2024-08-25 10:07 | Emergency (ER) | payer MEDICARE ==
[2024-08-25] MEDS: Metoprolol Tartrate 5 MG/5 ML SDV IVPUSH ONE ×2 (10:37→14:52)
[2024-08-25] MEDS ORDERED: Sodium Chloride 0.9% 10 ML Syringe FLUSH PRN (10:55)
[2024-08-25 11:05] LABS: HEMOGLOBIN 9.2 g/dL (11.5-16.5); MEAN CORPUSCULAR HEMOGLOBIN 29.5 pg (27.0-32.0); MEAN CORPUSCULAR HGB CONC 31.7 g/dL (31.0-35.0); MEAN PLATELET VOLUME 9.2 fL (6.0-10.0); RED BLOOD CELL COUNT 3.12 M/uL (3.80-5.80); RED CELL DISTRIBUTION WIDTH 16.9 % (11.0-16.0); WHITE BLOOD CELL COUNT,WBC 12.1 K/uL (4.0-11.0)
[2024-08-25 11:23] LABS: ANION GAP 17.1 mmol/L (5.0-15.0); BUN/CREATININE RATIO 17.9 (6-25); CALCIUM 8.9 mg/dL (8.5-10.1); CARBON DIOXIDE,CO2 22.7 mmol/L (21.0-32.0); CREATININE 0.95 mg/dL (0.55-1.02); EST CRCL DRUG DOSING (CG) 34.95 mL/min; MAGNESIUM 1.3 mg/dL (1.8-2.4); PHOSPHORUS 2.5 mg/dL (2.5-4.9); TROPONIN I HIGH SENSITIVITY 19.7 pg/ml (<=60.4)
[2024-08-25 11:27] LABS: POTASSIUM,K 2.8 mmol/L (3.5-5.1)
[2024-08-25] MEDS: Sodium Chloride 0.9% 1,000 ML IV SCH (11:41)
[2024-08-25] MEDS: Potassium Chloride Riders 10 MEQ in Premix Bag 1 BAG IV ONE (11:47)
[2024-08-25] MEDS: Potassium Chloride Riders 50 ML ONE (11:48)
[2024-08-25] MEDS: Acetaminophen 325 MG Tab PO ONE (11:49)
[2024-08-25] MEDS: Acetaminophen 325 MG Tab ONE (12:42)
[2024-08-25] MEDS: Sodium Chloride 0.9% 50 ML SDV FLUSH ONE (12:45)
[2024-08-25] MEDS: Iopamidol 612 MG/ML 100 ML Bottle IV SCH (12:45)
[2024-08-25] MEDS: Metoprolol Tartrate 5 MG/5 ML SDV ONE (14:59)
[2024-08-25 15:23] LABS: BUN/CREATININE RATIO 18.9 (6-25); CALCIUM 8.2 mg/dL (8.5-10.1); CARBON DIOXIDE,CO2 22.5 mmol/L (21.0-32.0); CREATININE 0.74 mg/dL (0.55-1.02); EST CRCL DRUG DOSING (CG) 44.86 mL/min; MAGNESIUM 1.8 mg/dL (1.8-2.4)
[2024-08-25 15:24] LABS: ANION GAP 15.5 mmol/L (5.0-15.0)
== END 2024-08-25 16:03 | disposition home or self-care (01) ==
LOC: LB.ED 10:07
DX: I48.0 Paroxysmal atrial fibrillation (principal); E87.6 Hypokalemia; E83.42 Hypomagnesemia; I10 Essential (primary) hypertension; E78.00 Pure hypercholesterolemia, unspecified; J44.89 Other specified chronic obstructive pulmonary disease; Z79.899 Other long term (current) drug therapy; Z79.82 Long term (current) use of aspirin; Z79.890 Hormone replacement therapy; Z79.891 Long term (current) use of opiate analgesic
CPT/HCPCS: 36415; 71275; 80048; 83735; 84100; 84484; 85027; 85379; 93005; 96361; 96365; 96366; 96367; 96375; 96376; 99284-25; A9270-GY; J3475; J3480; J3490; J7030; Q9967

== ENCOUNTER 2024-08-27 19:15 | Observation (INO) | payer MEDICARE ==
[2024-08-27] MEDS ORDERED: Sodium Chloride 0.9% 10 ML Syringe FLUSH PRN (19:28)
[2024-08-27] MEDS: Metoprolol Tartrate 5 MG/5 ML SDV IVPUSH ONE ×2 (19:41→22:38)
[2024-08-27 20:04] LABS: HEMATOCRIT 27.3 % (37.0-47.0); HEMOGLOBIN 8.5 g/dL (11.5-16.5); MEAN CORPUSCULAR HGB CONC 31.1 g/dL (31.0-35.0); MEAN PLATELET VOLUME 9.2 fL (6.0-10.0); RED BLOOD CELL COUNT 2.93 M/uL (3.80-5.80); RED CELL DISTRIBUTION WIDTH 17.2 % (11.0-16.0); WHITE BLOOD CELL COUNT,WBC 9.4 K/uL (4.0-11.0)
[2024-08-27 20:12] LABS: ANION GAP 17.5 mmol/L (5.0-15.0); BLOOD UREA NITROGEN,BUN 21 mg/dL (8-26); CARBON DIOXIDE,CO2 22.8 mmol/L (21.0-32.0); CHLORIDE,CL 100 mmol/L (98-107); ESTIMATED GFR 58 mL/min (>60); GLUCOSE RANDOM 155 mg/dL (74-100); MAGNESIUM 1.3 mg/dL (1.8-2.4); POTASSIUM,K 3.3 mmol/L (3.5-5.1); SODIUM,NA 137 mmol/L (136-145)
[2024-08-27 20:14] LABS: CALCIUM 9.3 mg/dL (8.5-10.1)
[2024-08-27] MEDS: Metoprolol Tartrate 5 MG/5 ML SDV ONE ×2 (20:24→22:44)
[2024-08-27] MEDS: Acetaminophen 500 MG Tab PO SCH (23:53)
[2024-08-27] MEDS: Heparin Sodium 5,000 Units/ML Vial SUBCUT SCH (23:53)
[2024-08-27] MEDS: oxyCODONE 5 MG Tab PO PRN (23:54)
[2024-08-27] MEDS: Cyclobenzaprine 10 MG Tab PO PRN (23:55)
[2024-08-28] MEDS ORDERED: Metoprolol Tartrate 5 MG in Sodium Chloride 0.9% 50 ML IV ONE (05:12)
[2024-08-28] MEDS: Metoprolol Succinate 50 MG Tab.ER PO ONE (05:23)
[2024-08-28] MEDS: Metoprolol Tartrate 5 MG/5 ML SDV IVPUSH ONE (05:24)
[2024-08-28] MEDS ORDERED: Non-Formulary Medication 1 Each (Potassium Chloride [Potassium Chloride] 20 MEQ Tablet.Er) PO SCH (08:00)
[2024-08-28] MEDS ORDERED: Potassium Chloride 10 MEQ Tab.ER PO SCH (08:00)
[2024-08-28] MEDS ORDERED: Non-Formulary Medication 1 Each (Magnesium [Magnesium] 250 MG Tablet) PO SCH (08:00)
[2024-08-28 08:58] LABS: ANION GAP 13.2 mmol/L (5.0-15.0); BUN/CREATININE RATIO 18.2 (6-25); CALCIUM 8.8 mg/dL (8.5-10.1); CARBON DIOXIDE,CO2 25.9 mmol/L (21.0-32.0); CREATININE 0.77 mg/dL (0.55-1.02); EST CRCL DRUG DOSING (CG) 38.85 mL/min; MAGNESIUM 1.7 mg/dL (1.8-2.4); POTASSIUM,K 3.1 mmol/L (3.5-5.1); TROPONIN I HIGH SENSITIVITY 20.1 pg/ml (<=60.4)
[2024-08-28] MEDS: Losartan 25 MG Tab PO SCH (09:10)
[2024-08-28] MEDS: Aspirin 81 MG Tab.EC PO SCH (09:10)
[2024-08-28] MEDS: Levothyroxine 50 MCG Tab PO SCH (09:10)
[2024-08-28] MEDS: Diltiazem 120 MG Cap.CD PO SCH (09:11)
[2024-08-28] MEDS: Metoprolol Tartrate 25 MG Tab PO SCH (09:11)
[2024-08-28] MEDS: DULoxetine 20 MG Cap PO SCH (09:12)
[2024-08-28] MEDS: Furosemide 20 MG Tab PO SCH (09:12)
[2024-08-28] MEDS: Docusate Sodium 100 MG Cap PO SCH (09:12)
[2024-08-28] MEDS: Ferrous Sulfate 325 MG Tab PO SCH (09:13)
[2024-08-28] MEDS: Folic Acid 1 MG Tab PO SCH (09:13)
[2024-08-28] MEDS: Pantoprazole 40 MG Tab.CR PO SCH (09:15)
[2024-08-28] MEDS: Tiotropium Bromide 4 GM Inhalation Spray (2.5mcg/1 dose; 10 doses) INH SCH (09:15)
[2024-08-28] MEDS: Potassium Chloride 20 MEQ Tab.ER PO SCH (09:17)
[2024-08-28] MEDS: Potassium Chloride Riders 10 MEQ in Premix Bag 1 BAG IV ONE ×2 (09:40→13:12)
[2024-08-28] MEDS: Apixaban 5 MG Tab PO SCH (09:41)
[2024-08-28] MEDS: FLU (Fluad Triv) TS24-25 (65UP)/MF59C/PF 45 MCG/0.5 ML Syringe IM ONE (10:15)
[2024-08-28] MEDS: Potassium Chloride 10 MEQ Tab.ER PO SCH (19:13)
[2024-08-28] MEDS: DULOXETINE 20 MG PO SCH (19:17)
[2024-08-28] MEDS: Simvastatin 40 MG Tab *PT OWN MED PO SCH (19:18)
[2024-08-29] MEDS: PANTOPRAZOLE 40 MG PO SCH (07:47)
[2024-08-29] MEDS: LEVOTHYROXINE 50 MCG PO SCH (07:48)
[2024-08-29] MEDS: Calcium Carbonate/Vitamin D3 1500 MG-400 Units Tab PO SCH (07:50)
[2024-08-29] MEDS: MAGNESIUM 250 MG PO SCH (07:54)
[2024-08-29 09:47] LABS: ANION GAP 12.2 mmol/L (5.0-15.0); BUN/CREATININE RATIO 22.6 (6-25); CALCIUM 8.7 mg/dL (8.5-10.1); CARBON DIOXIDE,CO2 24.9 mmol/L (21.0-32.0); CREATININE 0.84 mg/dL (0.55-1.02); EST CRCL DRUG DOSING (CG) 35.61 mL/min; MAGNESIUM 1.7 mg/dL (1.8-2.4); POTASSIUM,K 4.1 mmol/L (3.5-5.1)
== END 2024-08-29 12:26 | disposition home or self-care (01) ==
LOC: LB.ED 19:15 → LB.MS 23:15
PROVIDERS: ADMIT Surgery; ATTEND Surgery
DX: I48.0 Paroxysmal atrial fibrillation (principal); I48.92 Unspecified atrial flutter; E87.6 Hypokalemia; E83.42 Hypomagnesemia; D50.0 Iron deficiency anemia secondary to blood loss (chronic); I10 Essential (primary) hypertension; J43.9 Emphysema, unspecified; K21.9 Gastro-esophageal reflux disease without esophagitis; E78.00 Pure hypercholesterolemia, unspecified; Z87.891 Personal history of nicotine dependence; Z79.01 Long term (current) use of anticoagulants; Z79.899 Other long term (current) drug therapy
CPT/HCPCS: 36415; 80048; 83735; 84443; 84484; 85027; 93005; 93010; 96365; 96366; 96367; 96372; 96375; 96376; 99222; 99238; 99285-25; A9270-GY; G0378; J1644; J3475; J3480; J3490

== ENCOUNTER 2024-09-02 03:03 | Observation (INO) | payer MEDICARE ==
[2024-09-02] MEDS: Sodium Chloride 0.9% 1,000 ML IV ONE (03:54)
[2024-09-02] MEDS: Diltiazem 25 MG/5 ML SDV IVPUSH ONE (03:55)
[2024-09-02 04:24] LABS: BASOPHILS ABSOLUTE AUTO 0.02 K/uL (0.02-0.10); BASOPHILS PERCENT AUTO 0.2 % (0.0-0.5); EOSINOPHILS ABSOLUTE AUTO 0.14 K/uL (0.04-0.40); EOSINOPHILS PERCENT AUTO 1.3 % (1.0-5.0); HEMATOCRIT 27.5 % (37.0-47.0); HEMOGLOBIN 8.6 g/dL (11.5-16.5); LYMPHOCYTES ABSOLUTE AUTO 1.63 K/uL (1.50-4.00); LYMPHOCYTES PERCENT AUTO 15.1 % (20.0-40.0); MEAN CORPUSCULAR HEMOGLOBIN 29.5 pg (27.0-32.0); MEAN CORPUSCULAR HGB CONC 31.3 g/dL (31.0-35.0); MEAN CORPUSCULAR VOLUME 94 fL (76-96); MEAN PLATELET VOLUME 9.5 fL (6.0-10.0); MONOCYTES ABSOLUTE AUTO 1.21 K/uL (0.20-0.80); MONOCYTES PERCENT AUTO 11.2 % (3.0-10.0); NEUTROPHILS PERCENT AUTO 72.2 % (45.0-70.0); PLATELET COUNT,PLT 560 K/uL (150-500); RED BLOOD CELL COUNT 2.92 M/uL (3.80-5.80); RED CELL DISTRIBUTION WIDTH 17.4 % (11.0-16.0); WHITE BLOOD CELL COUNT,WBC 10.8 K/uL (4.0-11.0)
[2024-09-02] MEDS ORDERED: Sodium Chloride 0.9% 10 ML Syringe FLUSH PRN (04:24)
[2024-09-02 04:46] LABS: A/G RATIO 0.5 (0.8-2.0); ALBUMIN 2.6 g/dL (3.4-5.0); ANION GAP 20.9 mmol/L (5.0-15.0); BILIRUBIN TOTAL 0.2 mg/dL (0.0-1.0); BUN/CREATININE RATIO 23.6 (6-25); CALCIUM 9.3 mg/dL (8.5-10.1); CARBON DIOXIDE,CO2 19.1 mmol/L (21.0-32.0); CREATININE 1.06 mg/dL (0.55-1.02); EST CRCL DRUG DOSING (CG) 28.5 mL/min; MAGNESIUM 1.3 mg/dL (1.8-2.4); PROTEIN TOTAL,TP 7.5 g/dL (6.4-8.2); TROPONIN I HIGH SENSITIVITY 14.9 pg/ml (<=60.4); TSH ULTRASENSITIVE 4.687 uIU/mL (0.358-3.740)
[2024-09-02] MEDS: LORazepam 2 MG/ML SDV IVPUSH ONE (04:46)
[2024-09-02] MEDS: LORazepam 2 MG/ML SDV ONE (05:25)
[2024-09-02] MEDS ORDERED: Cyclobenzaprine 10 MG Tab PO PRN (05:33)
[2024-09-02] MEDS: Acetaminophen 500 MG Tab PO SCH (05:42)
[2024-09-02] MEDS ORDERED: Non-Formulary Medication 1 Each (Potassium Chloride [Potassium Chloride] 20 MEQ Tablet.Er) PO SCH (08:00)
[2024-09-02] MEDS ORDERED: MAGNESIUM CARB CITRATE OXIDE PO SCH (08:00)
[2024-09-02] MEDS ORDERED: Non-Formulary Medication 1 Each (Magnesium [Magnesium] 250 MG Tablet) PO SCH (08:00)
[2024-09-02] MEDS ORDERED: [UNRECOGNIZED DRUG - OTHER] PO SCH (08:00)
[2024-09-02] MEDS ORDERED: Pantoprazole 40 MG Tab.CR PO SCH ×2 (08:00→20:00)
[2024-09-02] MEDS: Docusate Sodium 100 MG Cap PO SCH (08:19)
[2024-09-02] MEDS: Potassium Chloride 20 MEQ Tab.ER PO SCH (08:20)
[2024-09-02] MEDS: Pantoprazole 40 MG Tab.CR PO SCH (08:20)
[2024-09-02] MEDS: Ferrous Sulfate 325 MG Tab PO SCH (08:20)
[2024-09-02] MEDS: Diltiazem 120 MG Cap.CD PO SCH (08:21)
[2024-09-02] MEDS: Losartan 25 MG Tab PO SCH (08:21)
[2024-09-02] MEDS: DULoxetine 20 MG Cap PO SCH (08:22)
[2024-09-02] MEDS: Furosemide 20 MG Tab PO SCH (08:22)
[2024-09-02] MEDS: Aspirin 81 MG Tab.EC PO SCH (08:22)
[2024-09-02] MEDS: Magnesium Oxide 400 MG Tab PO SCH (08:22)
[2024-09-02] MEDS: Metoprolol Tartrate 25 MG Tab PO SCH (08:22)
[2024-09-02] MEDS: Calcium Carbonate 600 MG Tab PO SCH (08:23)
[2024-09-02] MEDS: Folic Acid 1 MG Tab PO SCH (08:23)
[2024-09-02] MEDS: Levothyroxine 50 MCG Tab PO SCH (08:23)
[2024-09-02] MEDS: Tiotropium Bromide 4 GM Inhalation Spray (2.5mcg/1 dose; 10 doses) INH SCH (12:09)
[2024-09-02] MEDS: LORazepam 0.5 MG Tab PO PRN (12:10)
[2024-09-02] MEDS ORDERED: DULOXETINE 20 MG PO SCH (20:15)
[2024-09-02] MEDS: VITAMIN D PO SCH (21:11)
[2024-09-02] MEDS: CALCIUM 600 MG PO SCH (21:11)
[2024-09-02] MEDS: DULoxetine 30 MG Cap PO SCH (21:11)
[2024-09-02] MEDS: Pantoprazole 40 MG Tab.CR **OWN MED PO SCH (21:12)
[2024-09-02] MEDS: Formoterol/Mometasone 200-5 MCG 8.8 GM Inhaler INH SCH (21:12)
[2024-09-02] MEDS: oxyCODONE 5 MG Tab PO PRN (21:12)
[2024-09-03] MEDS: Levothyroxine 25 MCG Tab PO SCH (06:28)
[2024-09-03] MEDS: Losartan 50 MG Tab PO SCH (07:42)
[2024-09-03] MEDS: Metoprolol Tartrate 50 MG Tab PO SCH (07:42)
[2024-09-03] MEDS: DILTIAZEM 120 MG PO SCH (07:45)
[2024-09-03] MEDS: Aspirin 81 MG Tab.EC **OWN MED PO SCH (07:47)
[2024-09-03] MEDS: Ferrous Sulfate 325 MG Tab **OWN MED PO SCH (07:47)
[2024-09-03] MEDS: TIOTROPIUM BROMIDE INH SCH (07:48)
[2024-09-03] MEDS ORDERED: Ferrous Sulfate 325 MG Tab PO SCH (08:00)
[2024-09-03] MEDS ORDERED: DULoxetine 30 MG Cap PO SCH (08:00)
[2024-09-03 10:45] VITALS: BP 157/76; PULSE 98
[2024-09-03] MEDS ORDERED: LORazepam 1 MG Tab ONE ×2 (11:00→11:09)
[2024-09-03] MEDS ORDERED: LORazepam 0.5 MG Tab PO PRN (11:04)
[2024-09-03] MEDS ORDERED: DULoxetine 20 MG Cap PO SCH (14:00)
== END 2024-09-03 11:09 | disposition home or self-care (01) ==
LOC: LB.ED 03:03 → LB.MS 05:15
PROVIDERS: ADMIT Physician Assistant; ATTEND Physician Assistant
DX: I48.91 Unspecified atrial fibrillation (principal); I10 Essential (primary) hypertension; J44.9 Chronic obstructive pulmonary disease, unspecified; K21.9 Gastro-esophageal reflux disease without esophagitis; F41.9 Anxiety disorder, unspecified; Z79.899 Other long term (current) drug therapy
CPT/HCPCS: 36415; 71045; 80053; 83605; 83735; 83880; 84443; 84484; 85025; 93005; 93010; 93246; 96361; 96365; 96375; 99285; 99285-25; A9270-GY; G0378; J2060; J3475; J3490; J7030; U0002

== ENCOUNTER 2024-09-05 07:42 | Emergency (ER) | payer MEDICARE ==
[2024-09-05] MEDS: LORazepam 1 MG Tab PO ONE (08:05)
[2024-09-05 08:38] LABS: BASOPHILS ABSOLUTE AUTO 0.02 K/uL (0.02-0.10); BASOPHILS PERCENT AUTO 0.2 % (0.0-0.5); EOSINOPHILS ABSOLUTE AUTO 0.04 K/uL (0.04-0.40); EOSINOPHILS PERCENT AUTO 0.5 % (1.0-5.0); HEMATOCRIT 28.8 % (37.0-47.0); LYMPHOCYTES PERCENT AUTO 10.6 % (20.0-40.0); MEAN CORPUSCULAR HEMOGLOBIN 29.8 pg (27.0-32.0); MEAN CORPUSCULAR HGB CONC 31.3 g/dL (31.0-35.0); MEAN CORPUSCULAR VOLUME 95 fL (76-96); MEAN PLATELET VOLUME 9.2 fL (6.0-10.0); MONOCYTES ABSOLUTE AUTO 0.61 K/uL (0.20-0.80); MONOCYTES PERCENT AUTO 7.2 % (3.0-10.0); NEUTROPHILS ABSOLUTE AUTO 6.95 K/uL (2.00-7.50); NEUTROPHILS PERCENT AUTO 81.5 % (45.0-70.0); PLATELET COUNT,PLT 578 K/uL (150-500); RED BLOOD CELL COUNT 3.02 M/uL (3.80-5.80); RED CELL DISTRIBUTION WIDTH 17.5 % (11.0-16.0); WHITE BLOOD CELL COUNT,WBC 8.5 K/uL (4.0-11.0)
[2024-09-05 08:55] LABS: PROTHROMBIN TIME 10.3 sec (9.0-11.5)
[2024-09-05 08:58] LABS: MAGNESIUM 1.3 mg/dL (1.8-2.4); TROPONIN I HIGH SENSITIVITY 11.2 pg/ml (<=60.4)
[2024-09-05 09:04] LABS: A/G RATIO 0.6 (0.8-2.0); ALBUMIN 2.8 g/dL (3.4-5.0); ANION GAP 21.5 mmol/L (5.0-15.0); BILIRUBIN TOTAL 0.1 mg/dL (0.0-1.0); BUN/CREATININE RATIO 18.4 (6-25); CALCIUM 9.4 mg/dL (8.5-10.1); CARBON DIOXIDE,CO2 19.8 mmol/L (21.0-32.0); CREATININE 1.03 mg/dL (0.55-1.02); EST CRCL DRUG DOSING (CG) 29.98 mL/min; POTASSIUM,K 5.3 mmol/L (3.5-5.1); PROTEIN TOTAL,TP 7.6 g/dL (6.4-8.2)
[2024-09-05] MEDS: Acetaminophen 325 MG Tab PO ONE (09:10)
[2024-09-07] MEDS: Acetaminophen 325 MG Tab ONE (11:50)
== END 2024-09-05 09:30 | disposition home or self-care (01) ==
LOC: LB.ED 07:42
DX: F41.9 Anxiety disorder, unspecified (principal); I10 Essential (primary) hypertension; E78.00 Pure hypercholesterolemia, unspecified; J44.89 Other specified chronic obstructive pulmonary disease; K21.9 Gastro-esophageal reflux disease without esophagitis; M19.90 Unspecified osteoarthritis, unspecified site; Z87.891 Personal history of nicotine dependence; Z79.82 Long term (current) use of aspirin; Z79.890 Hormone replacement therapy; Z79.899 Other long term (current) drug therapy
CPT/HCPCS: 36415; 80053; 83735; 84484; 85025; 85610; 85730; 93005; 93010; 99284; 99285; A9270-GY

== ENCOUNTER 2024-09-06 11:33 | Inpatient (IN) | payer MEDICARE ==
[2024-09-06 12:07] LABS: BASOPHILS ABSOLUTE AUTO 0.02 K/uL (0.02-0.10); BASOPHILS PERCENT AUTO 0.2 % (0.0-0.5); EOSINOPHILS ABSOLUTE AUTO 0.01 K/uL (0.04-0.40); EOSINOPHILS PERCENT AUTO 0.1 % (1.0-5.0); HEMATOCRIT 27.4 % (37.0-47.0); HEMOGLOBIN 8.6 g/dL (11.5-16.5); LYMPHOCYTES ABSOLUTE AUTO 0.82 K/uL (1.50-4.00); LYMPHOCYTES PERCENT AUTO 8.4 % (20.0-40.0); MEAN CORPUSCULAR HEMOGLOBIN 29.7 pg (27.0-32.0); MEAN CORPUSCULAR HGB CONC 31.4 g/dL (31.0-35.0); MEAN CORPUSCULAR VOLUME 95 fL (76-96); MEAN PLATELET VOLUME 8.8 fL (6.0-10.0); MONOCYTES ABSOLUTE AUTO 0.68 K/uL (0.20-0.80); NEUTROPHILS ABSOLUTE AUTO 8.25 K/uL (2.00-7.50); NEUTROPHILS PERCENT AUTO 84.3 % (45.0-70.0); RED CELL DISTRIBUTION WIDTH 17.6 % (11.0-16.0); WHITE BLOOD CELL COUNT,WBC 9.8 K/uL (4.0-11.0)
[2024-09-06 12:18] LABS: PLATELET COUNT,PLT 652 K/uL (150-500)
[2024-09-06] MEDS: Acetaminophen 500 MG Tab PO ONE (12:24)
[2024-09-06 12:34] LABS: APPEARANCE,URINE CLEAR (CLEAR); COLOR,URINE YELLOW; PH,URINE 5.5 (5.0-8.0)
[2024-09-06 12:35] LABS: BILIRUBIN,URINE NEGATIVE (NEGATIVE); GLUCOSE,URINE NEGATIVE (NEGATIVE); KETONES,URINE TRACE mg/dL (NEGATIVE); LEUKOCYTE ESTERASE,URINE NEGATIVE (NEGATIVE); NITRITE,URINE NEGATIVE (NEGATIVE); OCCULT BLOOD,URINE SMALL (NEGATIVE); PROTEIN,URINE 30 mg/dL (NEGATIVE); RBC,URINE 0-5 /HPF; SQUAMOUS EPITHELIAL CELLS,UR MODERATE /HPF; UROBILINOGEN,URINE 0.2 E.U./dL (0.2-1.0); WBC,URINE NOT SEEN /HPF
[2024-09-06 12:37] LABS: A/G RATIO 0.5 (0.8-2.0); ALANINE AMINOTRANSFERASE,ALT 12 U/L (12-78); ALBUMIN 2.5 g/dL (3.4-5.0); ALKALINE PHOSPHATASE 159 U/L (46-116); ANION GAP 18.7 mmol/L (5.0-15.0); ASPARTATE AMNIOTRANSFERASE,AST 40 U/L (15-37); BILIRUBIN TOTAL 0.2 mg/dL (0.0-1.0); BLOOD UREA NITROGEN,BUN 18 mg/dL (8-26); BUN/CREATININE RATIO 17.1 (6-25); C-REACTIVE PROTEIN 53.2 mg/L (<5.0); CALCIUM 9.2 mg/dL (8.5-10.1); CARBON DIOXIDE,CO2 20.5 mmol/L (21.0-32.0); CHLORIDE,CL 101 mmol/L (98-107); CREATININE 1.05 mg/dL (0.55-1.02); ESTIMATED GFR 54 mL/min (>60); GLUCOSE RANDOM 104 mg/dL (74-100); MAGNESIUM 1.4 mg/dL (1.8-2.4); POTASSIUM,K 4.2 mmol/L (3.5-5.1); PROTEIN TOTAL,TP 7.5 g/dL (6.4-8.2); SODIUM,NA 136 mmol/L (136-145); TROPONIN I HIGH SENSITIVITY 12.6 pg/ml (<=60.4); TSH ULTRASENSITIVE 2.129 uIU/mL (0.358-3.740)
[2024-09-06] MEDS: Sodium Chloride 0.9% 50 ML SDV FLUSH ONE (13:22)
[2024-09-06] MEDS: Iopamidol 612 MG/ML 100 ML Bottle IV SCH (13:22)
[2024-09-06] MEDS: Sodium Chloride 0.9% 500 ML IV ONE (14:15)
[2024-09-06] MEDS: methylPREDNISolone Sodium Succinate 40 MG/1 ML SDV IVPUSH ONE (14:20)
[2024-09-06] MEDS: Albuterol/Ipratropium 3.0-0.5 MG/3 ML Neb Soln NEB SCH ×2 (14:20→15:31)
[2024-09-06] MEDS: Apixaban 5 MG Tab PO ONE (14:20)
[2024-09-06] MEDS ORDERED: Acetaminophen 325 MG Tab PO PRN ×2 (14:25→14:47)
[2024-09-06] MEDS: Acetaminophen 500 MG Tab ONE (14:54)
[2024-09-06] MEDS: Acetaminophen 500 MG Tab PO SCH ×2 (15:31→16:39)
[2024-09-06] MEDS: Sodium Chloride 0.9% 1,000 ML IV SCH (16:39)
[2024-09-06] MEDS: LORazepam 0.5 MG Tab PO PRN (16:39)
[2024-09-06] MEDS: Pantoprazole 40 MG Tab.CR PO SCH (19:11)
[2024-09-06] MEDS: Calcium Carbonate 600 MG Tab PO SCH (19:11)
[2024-09-06] MEDS: Simvastatin 40 MG Tab PO SCH (19:11)
[2024-09-06] MEDS: Metoprolol Tartrate 50 MG Tab PO SCH (19:11)
[2024-09-06] MEDS: DULoxetine 20 MG Cap PO SCH (19:11)
[2024-09-07] MEDS: Levothyroxine 25 MCG Tab PO SCH (06:13)
[2024-09-07] MEDS: Folic Acid 1 MG Tab PO SCH (07:42)
[2024-09-07] MEDS: Diltiazem 120 MG Cap.CD PO SCH (07:43)
[2024-09-07] MEDS: Magnesium Oxide 400 MG Tab PO SCH (07:43)
[2024-09-07] MEDS: Ferrous Sulfate 325 MG Tab PO SCH (07:45)
[2024-09-07] MEDS: Aspirin 81 MG Tab.EC PO SCH (07:45)
[2024-09-07] MEDS: Labetalol 100 MG/20 ML MDV IVPUSH ONE (07:45)
[2024-09-07 07:46] LABS: BASOPHILS ABSOLUTE AUTO 0.01 K/uL (0.02-0.10); BASOPHILS PERCENT AUTO 0.1 % (0.0-0.5); EOSINOPHILS ABSOLUTE AUTO 0.01 K/uL (0.04-0.40); EOSINOPHILS PERCENT AUTO 0.1 % (1.0-5.0); HEMOGLOBIN 7.9 g/dL (11.5-16.5); LYMPHOCYTES ABSOLUTE AUTO 0.94 K/uL (1.50-4.00); MEAN CORPUSCULAR HEMOGLOBIN 29.9 pg (27.0-32.0); MEAN CORPUSCULAR HGB CONC 31.6 g/dL (31.0-35.0); MEAN CORPUSCULAR VOLUME 95 fL (76-96); MEAN PLATELET VOLUME 8.9 fL (6.0-10.0); MONOCYTES ABSOLUTE AUTO 0.94 K/uL (0.20-0.80); NEUTROPHILS ABSOLUTE AUTO 9.78 K/uL (2.00-7.50); NEUTROPHILS PERCENT AUTO 83.8 % (45.0-70.0); RED BLOOD CELL COUNT 2.64 M/uL (3.80-5.80); RED CELL DISTRIBUTION WIDTH 17.6 % (11.0-16.0); WHITE BLOOD CELL COUNT,WBC 11.7 K/uL (4.0-11.0)
[2024-09-07 07:55] LABS: PLATELET COUNT,PLT 655 K/uL (150-500)
[2024-09-07 08:17] LABS: ANION GAP 16.4 mmol/L (5.0-15.0); BUN/CREATININE RATIO 16.8 (6-25); CARBON DIOXIDE,CO2 20.4 mmol/L (21.0-32.0); CREATININE 1.01 mg/dL (0.55-1.02); EST CRCL DRUG DOSING (CG) 31.16 mL/min; POTASSIUM,K 3.8 mmol/L (3.5-5.1)
[2024-09-07] MEDS: Labetalol 100 MG/20 ML MDV ONE (08:26)
[2024-09-07] MEDS: Ondansetron 4 MG/2 ML SDV IVPUSH ONE (08:27)
[2024-09-07] MEDS: Metoprolol Tartrate 25 MG Tab PO ONE (08:38)
[2024-09-07] MEDS: Acetaminophen 500 MG Tab ONE (09:49)
[2024-09-07] MEDS: Tiotropium Bromide 4 GM Inhalation Spray (2.5mcg/1 dose; 10 doses) INH SCH (10:31)
[2024-09-07] MEDS ORDERED: Albuterol/Ipratropium 3.0-0.5 MG/3 ML Neb Soln NEB PRN (10:41)
[2024-09-07] MEDS ORDERED: methylPREDNISolone Sodium Succinate 40 MG/1 ML SDV IVPUSH ONE (14:29)
[2024-09-07] MEDS: Metoprolol Tartrate 50 MG Tab PO SCH (19:18)
[2024-09-07] MEDS: Cyclobenzaprine 10 MG Tab PO PRN (21:29)
[2024-09-07] MEDS: oxyCODONE 5 MG Tab PO PRN (21:29)
[2024-09-08 08:44] LABS: ANION GAP 12.9 mmol/L (5.0-15.0); CALCIUM 9.2 mg/dL (8.5-10.1); CARBON DIOXIDE,CO2 25.9 mmol/L (21.0-32.0); CREATININE 0.92 mg/dL (0.55-1.02); EST CRCL DRUG DOSING (CG) 34.21 mL/min; MAGNESIUM 1.9 mg/dL (1.8-2.4); POTASSIUM,K 3.8 mmol/L (3.5-5.1)
== END 2024-09-08 12:25 | disposition home or self-care (01) | DRG 310 ==
LOC: LB.ED 11:33 → LB.MS 14:19
PROVIDERS: ADMIT Physician Assistant; ATTEND Family Medicine
DX: I47.10 Supraventricular tachycardia, unspecified (principal); I48.0 Paroxysmal atrial fibrillation; J43.9 Emphysema, unspecified; F41.9 Anxiety disorder, unspecified; E78.00 Pure hypercholesterolemia, unspecified; I10 Essential (primary) hypertension; Z79.890 Hormone replacement therapy; K21.9 Gastro-esophageal reflux disease without esophagitis; M19.90 Unspecified osteoarthritis, unspecified site; M81.0 Age-related osteoporosis without current pathological fracture; E83.42 Hypomagnesemia; Z79.899 Other long term (current) drug therapy; Z79.82 Long term (current) use of aspirin; Z87.81 Personal history of (healed) traumatic fracture; Z98.49 Cataract extraction status, unspecified eye; Z98.890 Other specified postprocedural states
CPT/HCPCS: 36415; 71045; 71260; 80053; 81001; 83735; 84443; 84484; 85025; 85379; 86140; 93005; 99285; A9270; J3490; J7040; Q9967; 80048; 85014; 85018; 93010; 94640; 99222; 99232; 99238; J1921; J2919; J3475; J7030; J7620; U0002

== ENCOUNTER 2024-09-23 11:01 | Inpatient (IN) | payer MEDICARE ==
[2024-09-23] MEDS ORDERED: Sodium Chloride 0.9% 10 ML Syringe FLUSH PRN (11:32)
[2024-09-23] MEDS: Ketorolac 30 MG/ML SDV IM ONE (12:25)
[2024-09-23] MEDS: Ketorolac 30 MG/ML SDV ONE (12:35)
[2024-09-23 13:01] LABS: APPEARANCE,URINE CLOUDY (CLEAR); BILIRUBIN,URINE NEGATIVE (NEGATIVE); COLOR,URINE YELLOW; GLUCOSE,URINE NEGATIVE (NEGATIVE); KETONES,URINE 15 mg/dL (NEGATIVE); PH,URINE 7.5 (5.0-8.0); PROTEIN,URINE 30 mg/dL (NEGATIVE)
[2024-09-23 13:02] LABS: NITRITE,URINE NEGATIVE (NEGATIVE); OCCULT BLOOD,URINE MODERATE (NEGATIVE); UROBILINOGEN,URINE 0.2 E.U./dL (0.2-1.0)
[2024-09-23 13:03] LABS: LEUKOCYTE ESTERASE,URINE TRACE (NEGATIVE); RBC,URINE 40-50 /HPF; WBC,URINE 0-5 /HPF
[2024-09-23 13:04] LABS: AMORPHOUS SEDIMENT,URINE MANY /HPF; SQUAMOUS EPITHELIAL CELLS,UR FEW /HPF
[2024-09-23 13:14] LABS: A/G RATIO 0.5 (0.8-2.0); ALANINE AMINOTRANSFERASE,ALT 11 U/L (12-78); ALBUMIN 2.3 g/dL (3.4-5.0); ALKALINE PHOSPHATASE 172 U/L (46-116); ANION GAP 17.9 mmol/L (5.0-15.0); ASPARTATE AMNIOTRANSFERASE,AST 51 U/L (15-37); BILIRUBIN TOTAL 0.6 mg/dL (0.0-1.0); BLOOD UREA NITROGEN,BUN 20 mg/dL (8-26); BUN/CREATININE RATIO 24.1 (6-25); CALCIUM 8.9 mg/dL (8.5-10.1); CARBON DIOXIDE,CO2 23.4 mmol/L (21.0-32.0); CHLORIDE,CL 100 mmol/L (98-107); CREATININE 0.83 mg/dL (0.55-1.02); ESTIMATED GFR 72 mL/min (>60); GLUCOSE RANDOM 90 mg/dL (74-100); POTASSIUM,K 4.3 mmol/L (3.5-5.1); PROTEIN TOTAL,TP 7.1 g/dL (6.4-8.2); SODIUM,NA 137 mmol/L (136-145)
[2024-09-23] MEDS: HYDROmorphone 2 MG/ML Syringe ONE (13:19)
[2024-09-23] MEDS: HYDROmorphone 1 MG/ML Syringe IM PRN (13:20)
[2024-09-23 13:47] LABS: BASOPHILS ABSOLUTE AUTO 0.01 K/uL (0.02-0.10); BASOPHILS PERCENT AUTO 0.1 % (0.0-0.5); EOSINOPHILS ABSOLUTE AUTO 0.01 K/uL (0.04-0.40); EOSINOPHILS PERCENT AUTO 0.1 % (1.0-5.0); HEMATOCRIT 35.4 % (37.0-47.0); HEMOGLOBIN 11.3 g/dL (11.5-16.5); LYMPHOCYTES ABSOLUTE AUTO 0.41 K/uL (1.50-4.00); LYMPHOCYTES PERCENT AUTO 3.6 % (20.0-40.0); MEAN CORPUSCULAR HEMOGLOBIN 29.4 pg (27.0-32.0); MEAN CORPUSCULAR HGB CONC 31.9 g/dL (31.0-35.0); MEAN CORPUSCULAR VOLUME 92 fL (76-96); MEAN PLATELET VOLUME 8.9 fL (6.0-10.0); MONOCYTES ABSOLUTE AUTO 0.73 K/uL (0.20-0.80); MONOCYTES PERCENT AUTO 6.5 % (3.0-10.0); NEUTROPHILS PERCENT AUTO 89.7 % (45.0-70.0); PLATELET COUNT,PLT 529 K/uL (150-500); RED BLOOD CELL COUNT 3.85 M/uL (3.80-5.80); RED CELL DISTRIBUTION WIDTH 15.9 % (11.0-16.0); WHITE BLOOD CELL COUNT,WBC 11.3 K/uL (4.0-11.0)
[2024-09-23] MEDS ORDERED: Acetaminophen 500 MG Tab PO PRN (16:42)
[2024-09-23] MEDS: Magnesium Oxide 400 MG Tab PO SCH (17:29)
[2024-09-23] MEDS: Ferrous Sulfate 325 MG Tab PO SCH (17:29)
[2024-09-23] MEDS: Calcium Carbonate 600 MG Tab PO SCH (19:13)
[2024-09-23] MEDS: Pantoprazole 40 MG Tab.CR PO SCH (19:13)
[2024-09-23] MEDS: DULoxetine 20 MG Cap PO SCH (19:13)
[2024-09-23] MEDS: Simvastatin 40 MG Tab PO SCH (19:13)
[2024-09-24] MEDS: LORazepam 0.5 MG Tab PO PRN (01:39)
[2024-09-24] MEDS: HYDROmorphone 2 MG/ML Syringe ONE (02:22)
[2024-09-24] MEDS ORDERED: Diltiazem 240 MG Cap.ER PO SCH ×2 (08:00)
[2024-09-24] MEDS ORDERED: Metoprolol Succinate 25 MG Tab.ER PO SCH (08:00)
[2024-09-24] MEDS: Naloxone 2 MG/2 ML Syringe IVPUSH PRN (08:00)
[2024-09-24] MEDS: Sodium Chloride 0.9% 1,000 ML IV SCH ×2 (08:10→08:43)
[2024-09-24] MEDS: LORazepam 2 MG/ML SDV IVPUSH SCH (08:20)
[2024-09-24] MEDS: Midazolam 1 MG/ML 2 ML SDV IVPUSH SCH (08:25)
[2024-09-24] MEDS: fentaNYL 100 MCG/2 ML SDV IVPUSH PRN (08:25)
[2024-09-24 08:48] LABS: BASOPHILS ABSOLUTE AUTO 0.01 K/uL (0.02-0.10); BASOPHILS PERCENT AUTO 0.1 % (0.0-0.5); EOSINOPHILS ABSOLUTE AUTO 0.01 K/uL (0.04-0.40); EOSINOPHILS PERCENT AUTO 0.1 % (1.0-5.0); LYMPHOCYTES ABSOLUTE AUTO 0.85 K/uL (1.50-4.00); LYMPHOCYTES PERCENT AUTO 8.2 % (20.0-40.0); MEAN CORPUSCULAR HEMOGLOBIN 29.2 pg (27.0-32.0); MEAN CORPUSCULAR HGB CONC 29.6 g/dL (31.0-35.0); MEAN CORPUSCULAR VOLUME 99 fL (76-96); MEAN PLATELET VOLUME 9.7 fL (6.0-10.0); MONOCYTES ABSOLUTE AUTO 0.72 K/uL (0.20-0.80); NEUTROPHILS ABSOLUTE AUTO 8.74 K/uL (2.00-7.50); NEUTROPHILS PERCENT AUTO 84.6 % (45.0-70.0); PLATELET COUNT,PLT 382 K/uL (150-500); RED BLOOD CELL COUNT 2.74 M/uL (3.80-5.80); WHITE BLOOD CELL COUNT,WBC 10.3 K/uL (4.0-11.0)
[2024-09-24 08:56] LABS: BICARBONATE,VENOUS 8.8 mmol/L (23.0-28.0); PCO2 VENOUS 42.7 mm/Hg (41-51)
[2024-09-24 08:57] LABS: BASE EXCESS VENOUS -23.8 mm/L (-2-3)
[2024-09-24 08:58] LABS: PH,VENOUS 6.92 (7.31-7.41)
[2024-09-24] MEDS: Ketamine 200 MG/20 ML MDV IVPUSH PRN (08:59)
[2024-09-24 09:00] LABS: ALBUMIN 1.7 g/dL (3.4-5.0); ANION GAP 30.1 mmol/L (5.0-15.0); BILIRUBIN TOTAL 0.3 mg/dL (0.0-1.0); BUN/CREATININE RATIO 16.3 (6-25); CALCIUM 8.2 mg/dL (8.5-10.1); CREATININE 1.96 mg/dL (0.55-1.02); EST CRCL DRUG DOSING (CG) 14.08 mL/min; MAGNESIUM 2.9 mg/dL (1.8-2.4); POTASSIUM,K 5.7 mmol/L (3.5-5.1); PROTEIN TOTAL,TP 5.5 g/dL (6.4-8.2)
[2024-09-24 09:16] LABS: A/G RATIO 0.5 (0.8-2.0); CARBON DIOXIDE,CO2 12.6 mmol/L (21.0-32.0)
[2024-09-24] MEDS: Sodium Bicarbonate 8.4% 50 MEQ/50 ML Syringe IVPUSH SCH (09:22)
[2024-09-24] MEDS: VANCOmycin 1 GM in Sodium Chloride 0.9% 250 ML IV ONE (09:34)
[2024-09-24] MEDS: Cefepime 1 GM in Sodium Chloride 0.9% 50 ML IV ONE (09:39)
[2024-09-24] MEDS: Norepinephrine Bit/0.9 % NaCl 4 MG in Premix Bag 1 BAG IV SCH (09:59)
[2024-09-24] MEDS ORDERED: Sodium Chloride 0.9% 10 ML Syringe FLUSH PRN (11:31)
[2024-09-24] MEDS: Diltiazem 180 MG Cap.CD PO SCH (11:39)
[2024-09-24] MEDS: Aspirin 81 MG Tab.Chew PO SCH (11:39)
[2024-09-24] MEDS: Levothyroxine 75 MCG Tab PO SCH (11:39)
[2024-09-24] MEDS: fentaNYL 100 MCG/2 ML SDV ONE (11:40)
[2024-09-24] MEDS: Ketamine 200 MG/20 ML MDV ONE (11:40)
[2024-09-24] MEDS: VANCOmycin 1 GM SDV ONE (11:40)
[2024-09-24] MEDS: LORazepam 2 MG/ML SDV ONE (11:40)
[2024-09-24] MEDS: Metoprolol Succinate 50 MG Tab.ER PO SCH (11:40)
[2024-09-24] MEDS: Tiotropium Bromide 4 GM Inhalation Spray (2.5mcg/1 dose; 10 doses) INH SCH (11:40)
== END 2024-09-24 10:47 | DRG 871 ==
LOC: LB.ED 11:01 → LB.MS 11:27
PROVIDERS: ADMIT Surgery; ATTEND Surgery
DX: A41.02 Sepsis due to Methicillin resistant Staphylococcus aureus (principal); J96.00 Acute respiratory failure, unspecified whether with hypoxia or hypercapnia; R65.21 Severe sepsis with septic shock; Z68.1 Body mass index [BMI] 19.9 or less, adult; J44.9 Chronic obstructive pulmonary disease, unspecified; F41.9 Anxiety disorder, unspecified; I48.91 Unspecified atrial fibrillation; R63.4 Abnormal weight loss; I50.9 Heart failure, unspecified; M71.122 Other infective bursitis, left elbow; Z87.81 Personal history of (healed) traumatic fracture; Z79.2 Long term (current) use of antibiotics; Z79.899 Other long term (current) drug therapy
CPT/HCPCS: 36415; 51702; 71045; 80053; 81001; 82803; 82947; 83605; 83735; 84443; 84484; 85025; 93005; 99222; 99238; A9270-GY; J0692; J1171; J1885; J2060; J2250; J2310; J3010; J3490; J7030; J7050; U0002